=== PATIENT | female | born 1945 | race Caucasian/White ===

== ENCOUNTER → 2017-09-27 | Outpatient (CLI) | payer MEDICARE, OTHER ==
--- NOTE | 2017-09-27 13:43 | US ---
EXAMINATION TYPE: US kidneys/renal and bladder DATE OF EXAM: 09/27/2017 COMPARISON: NONE CLINICAL HISTORY: N18.3 KIDNEY DISEASE STAGE 3. CKD EXAM MEASUREMENTS: Right Kidney: 8.2 x 3.9 x 3.7 cm Left Kidney: 9.1 x 5.1 x 3.7 cm Post Void Residual Volume: 7.6 mL Right Kidney: no evidence of hydronephrosis or mass Left Kidney: no evidence of hydronephrosis or mass Bladder: appears wnl Bilateral Jets seen: no Normal Post Void Residual: yes Urinary bladder is sonolucent. Posterior wall is normal. Right ureteral jet is present. Post void res idual of 7.6 mL is normal. IMPRESSION: 1. Normal renal ultrasound
== END | disposition home or self-care (01) ==
LOC: RADUSWWP 12:42
PROVIDERS: ATTEND Family Medicine
DX: N18.3 Chronic kidney disease, stage 3 (moderate) (principal)
CPT/HCPCS: 76770

== ENCOUNTER 2017-11-26 19:50 | Observation (INO) | payer MEDICARE ==
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
[2017-11-26 20:55] LABS: Basophils % (A) 1 %; Eosinophils # (A) 0.2 k/uL (0-0.7); Eosinophils % (A) 2 %; HCT 39.7 % (34.0-46.0); HGB 12.9 gm/dL (11.4-16.0); Lymphocytes # (A) 2.2 k/uL (1.0-4.8); Lymphocytes % (A) 31 %; MCH 29.2 pg (25.0-35.0); MCHC 32.6 g/dL (31.0-37.0); MCV 89.5 fL (80.0-100.0); Mean Platelet Volume 6.9; Monocytes # (A) 0.3 k/uL (0-1.0); Monocytes % (A) 4 %; Neutrophils # (A) 4.2 k/uL (1.3-7.7); Neutrophils % (A) 60 %; Platelet Count 223 k/uL (150-450); RBC 4.43 m/uL (3.80-5.40); RDW 13.1 % (11.5-15.5); WBC 6.9 k/uL (3.8-10.6)
[2017-11-26 20:58] LABS: Appearance,Urine Clear (Clear); Bacteria,Urine Rare /hpf; Bilirubin,Urine Negative (Negative); Blood,Urine Negative (Negative); Color,Urine Light Yellow; Glucose,Urine (UA) Negative (Negative); Hyaline Casts,Urine 22 /lpf (0-2); Ketones,Urine Negative (Negative); Leukocyte Esterase,Urine Small (Negative); Nitrite,Urine Negative (Negative); Protein,Urine Negative (Negative); RBC,Urine 1 /hpf (0-5); Specific Gravity,Urine 1.006 (1.001-1.035); Squamous Epithelial Cell,Urine <1 /hpf (0-4); Urobilinogen,Urine <2.0 mg/dL (<2.0); WBC,Urine 14 /hpf (0-5)
[2017-11-26 21:04] LABS: Albumin 4.7 g/dL (3.5-5.0); Calcium 10.2 mg/dL (8.4-10.2); Total Bilirubin 0.4 mg/dL (0.2-1.3); Total Protein 7.5 g/dL (6.3-8.2)
[2017-11-26 21:11] LABS: Potassium 2.9 mmol/L (3.5-5.1)
[2017-11-26] MEDS ORDERED: POTASSIUM CHLORIDE ER 20 MEQ TAB.ER PO STA (21:41)
[2017-11-26] MEDS ORDERED: DIAZEPAM 5 MG TAB PO STA (22:09)
[2017-11-26] MEDS: POTASSIUM CHLORIDE 20 MEQ in SODIUM CHLORIDE 0.9% 100 ML IV SCH (22:16)
[2017-11-26] MEDS ORDERED: SODIUM CHLORIDE 0.9% 1,000 ML IV SCH (22:30)
[2017-11-26] MEDS ORDERED: NALOXONE 0.4 MG/ML 1 ML VIAL IV PRN (22:39)
[2017-11-26] MEDS ORDERED: traZODone HCL 100 MG TAB PO SCH (23:45)
[2017-11-26] MEDS ORDERED: DIAZEPAM 5 MG TAB PO PRN (23:47)
[2017-11-26] MEDS ORDERED: Potassium Replacement Protocol 1 EACH MISC MISCELLANE PRN (23:49)
[2017-11-27 00:18] VITALS: BMI 18.5
[2017-11-27] MEDS: QUEtiapine 100 MG TAB PO SCH ×2 (00:26→20:59)
[2017-11-27] MEDS: POTASSIUM CHLORIDE 20 MEQ in SODIUM CHLORIDE 0.9% 100 ML IV SCH (00:26)
[2017-11-27] MEDS: 0.9% NACL WITH KCL 40 MEQ/L 1,000 ML IV SCH ×2 (00:26→15:15)
--- NOTE | 2017-11-27 02:02 | HP ---
HISTORY AND PHYSICAL DATE OF SERVICE: 11/26/17 CHIEF COMPLAINT: Psychiatric evaluation. HISTORY OF PRESENT ILLNESS: This 72-year-old woman with a past medical history of multiple medical problems including DJD, history of anxiety/bipolar depression being followed by Dr. Keenan, apparently brought by police after being petitioned by son. Patient was previously evaluated for dementia, but apparently the patient was having some strange behaviors including eating Tide pods and giving you her debit cards and the patient is not eating well. The patient is losing weight and sons were concerned and patient was petitioned. The patient reports the sons are being mean. The patient also found to have severe hypokalemia. There is no history of fever, rigors, no history of headache, loss of consciousness, seizures. PAST MEDICAL HISTORY: History of DJD, history of right shoulder surgery and, anxiety depression, bipolar, history of nicotine dependence. MEDICATIONS: Prior to admission include: 1. Trazodone 200 mg q.h.s. 2. Seroquel 200 mg. 3. Valium 5 mg t.i.d. p.r.n. 4. Vitamin D 3000 daily. 5. Calcium 600 mg daily. 6. Lasix 40 mg p.o. daily. ALLERGIES: PENICILLIN. FAMILY HISTORY: No history of heart disease or strokes in the family. SOCIAL HISTORY: Previous history of smoking. No history of current smoking or alcohol intake. REVIEW OF SYSTEMS: ENT: No diminished vision or hearing. Cardiovascular no angina or palpitations. Respiratory: No cough or hemoptysis. GI no nausea or vomiting. no dysuria. Nervous system: No numbness, weakness. Allergy/Immunology:No asthma or hayfever. Musculoskeletal as mentioned earlier. Hematology: No history of anemia. Endocrine: No history of diabetes or hypothyroidism. Constitutional: As mentioned earlier. Dermatology: Negative. Rheumatology: Negative. Psychiatric: As mentioned earlier. PHYSICAL EXAMINATION: Alert and oriented times three, pulse 64, blood pressure 135/70, respiration 18, temperature 97.7, pulse ox 99% on room air. HEENT: Conjunctivae normal. Oral mucosa moist. Neck is no jugular venous distention. No carotid bruit. No lymph node enlargement. Cardiovascular system: S1, S2 muffled. Respiratory: Breath sounds diminished in the bases. A few scattered rhonchi and no crackles. ABDOMEN: Soft, nontender. No mass palpable. Legs: No edema and no swelling. NERVOUS SYSTEM: Higher functions as mentioned earlier, moves all 4 limbs, no focal deficits. Lymphatics: No lymph nodes palpable in the neck, axillae or groin. Skin no ulcer, rash or bleeding. LABS: CBC within normal limits. Sodium 140, potassium 2.9, creatinine to 1.27. ASSESSMENT: 1. Severe hypokalemia, cause undetermined. Possibly poor p.o. intake. 2. Increased creatinine, mild acute renal failure with dehydration. 3. Possible acute urinary tract infection. 4. Psychiatric symptoms, possible acute psychosis. 5. Anxiety, bipolar depression. 6. History of nicotine dependence. 7. History of degenerative joint disease. RECOMMENDATIONS AND DISCUSSION: In this 72-year-old woman who presented with multiple complex medical issues, we will monitor the patient closely. Continue the current medications, symptomatic treatment, management and i would recommend IV fluids with potassium supplementation. I would also recommend repeat labs. DVT prophylaxis and I would also recommend a psychiatric consultation and possible transfer to inpatient psych. The patient is deemed psychiatrically ill. Otherwise the prognosis guarded because of multiple complex medical issues. The cultures also will be arranged and discussed with the patient. A copy of dictation being forwarded to Dr. Keenan who is the primary physician. We will hold the Lasix for now and continue to monitor. MMODL / IJN: [id number] /
[2017-11-27 07:47] LABS: Basophils % (A) 1 %; Eosinophils # (A) 0.2 k/uL (0-0.7); Eosinophils % (A) 4 %; HCT 33.6 % (34.0-46.0); Lymphocytes # (A) 1.4 k/uL (1.0-4.8); Lymphocytes % (A) 40 %; MCH 29.3 pg (25.0-35.0); MCHC 32.8 g/dL (31.0-37.0); MCV 89.4 fL (80.0-100.0); Mean Platelet Volume 7.1; Monocytes # (A) 0.2 k/uL (0-1.0); Monocytes % (A) 6 %; Neutrophils # (A) 1.7 k/uL (1.3-7.7); Neutrophils % (A) 46 %; Platelet Count 192 k/uL (150-450); RBC 3.76 m/uL (3.80-5.40); RDW 12.8 % (11.5-15.5); WBC 3.6 k/uL (3.8-10.6)
[2017-11-27 08:11] LABS: Albumin 3.4 g/dL (3.5-5.0); Calcium 9.2 mg/dL (8.4-10.2); Magnesium 1.8 mg/dL (1.6-2.3); Potassium 4.4 mmol/L (3.5-5.1); Total Bilirubin 0.3 mg/dL (0.2-1.3); Total Protein 5.7 g/dL (6.3-8.2)
[2017-11-27] MEDS ORDERED: PNEUMOCOCCAL VACC-PNEUMOVAX 23 25 MCG/0.5 ML VIAL IM ONE (08:30)
[2017-11-27] MEDS: CALCIUM CARBONATE 500 MG CHEWABLE PO SCH (09:24)
[2017-11-27] MEDS: CHOLECALCIFEROL 1,000 UNIT TAB PO SCH (09:25)
[2017-11-27] MEDS: cefTRIAXone IN SWFI 1,000 MG/10 ML SYRINGE IVP SCH (09:25)
[2017-11-27] MEDS: HEPARIN SODIUM,PORCINE 5,000 UNIT/ML 1 ML VIAL SQ SCH ×2 (09:25→20:59)
[2017-11-27] MEDS: MULTIVITAMINS, THERA 1 EACH TAB PO SCH (11:40)
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
[2017-11-27] MEDS: DIAZEPAM 5 MG TAB PO SCH (20:59)
[2017-11-28] MEDS: 0.9% NACL WITH KCL 40 MEQ/L 1,000 ML IV SCH ×2 (06:29→16:36)
[2017-11-28] MEDS: cefTRIAXone IN SWFI 1,000 MG/10 ML SYRINGE IVP SCH (08:57)
[2017-11-28] MEDS: CALCIUM CARBONATE 500 MG CHEWABLE PO SCH (08:57)
[2017-11-28] MEDS: DIAZEPAM 5 MG TAB PO SCH ×2 (08:58→20:18)
[2017-11-28] MEDS: HEPARIN SODIUM,PORCINE 5,000 UNIT/ML 1 ML VIAL SQ SCH ×2 (08:58→20:19)
[2017-11-28] MEDS: CHOLECALCIFEROL 1,000 UNIT TAB PO SCH (08:58)
[2017-11-28 09:42] LABS: Basophils % (A) 0 %; Eosinophils # (A) 0.2 k/uL (0-0.7); Eosinophils % (A) 5 %; HGB 11.4 gm/dL (11.4-16.0); Hypochromasia Slight; Lymphocytes # (A) 1.4 k/uL (1.0-4.8); Lymphocytes % (A) 42 %; MCH 29.1 pg (25.0-35.0); MCHC 30.9 g/dL (31.0-37.0); MCV 94.3 fL (80.0-100.0); Mean Platelet Volume 7.3; Monocytes # (A) 0.2 k/uL (0-1.0); Monocytes % (A) 6 %; Neutrophils # (A) 1.5 k/uL (1.3-7.7); Neutrophils % (A) 45 %; Platelet Count 180 k/uL (150-450); RBC 3.93 m/uL (3.80-5.40); RDW 12.9 % (11.5-15.5); WBC 3.4 k/uL (3.8-10.6)
--- NOTE | 2017-11-28 10:13 | P.PN ---
Subjective Progress Note Date: 11/27/17 Progress note being dictated for Dr. Mcnair. Interval history: This a 72-year-old female admitted with severe hypokalemia of unclear etiology, suspect poor oral intake, acute renal failure with dehydration , possible acute UTI, psychiatric symptoms, possible acute psychosis and multiple other medical issues. Maintained on IV fluids, potassium replacement supplements, holding lasix. Potassium normalized, renal function improving. Patient has been petitioned by son. Psychiatry consult in place with recommendations pending. Currently alert and oriented 3. Afebrile, urine and blood cultures pending. Objective - Vital Signs Vital signs: Vital Signs Temp 98.2 F 11/27/17 15:00 Pulse 68 11/27/17 15:00 Resp 18 11/27/17 15:00 BP 114/59 11/27/17 15:00 Pulse Ox 96 11/27/17 15:00 Intake & Output 11/27/17 11/27/17 11/28/17 06:59 18:59 06:59 Weight 43 kg 43 kg Other: Voiding Method Toilet Toilet # Voids 1 2 - Exam PHYSICAL EXAM: VITAL SIGNS: As above GENERAL: Sitting up in bed, no acute distress HEENT: Conjunctivae normal. eyes normal. Oral mucosa moist NECK: No JVD. No thyroid enlargement. No LNs CARDIOVASCULAR: S1, S2 muffled. No murmur RESPIRATION: Breath sounds diminished in the bases. Occasional scattered rhonchi, no crackles, no wheezing ABDOMEN: Soft, nontender . No guarding. no masses palpable. Bowel sounds heard. LEGS: No edema. no swelling PSYCHIATRY: Alert and oriented -3, mood and affect normal, cooperative. NERVOUS SYSTEM: Cranial N 2-12 grossly normal. Moves all 4 limbs. Diffuse weakness No focal deficits. Skin: no ulcer no rash Joints: No active swelling. No inflammation. Lymphatic system. No LN neck axilla or groin. - Labs CBC & Chem 7: 11/28/17 08:45 11/27/17 07:09 Labs: Abnormal Lab Results - Last 24 Hours (Table) 11/26/17 11/26/17 11/27/17 Range/Units 20:43 20:43 07:09 WBC 3.6 L (3.8-10.6) k/uL RBC 3.76 L (3.80-5.40) m/uL Hgb 11.0 L (11.4-16.0) gm/dL Hct 33.6 L (34.0-46.0) % Potassium 2.9 L* (3.5-5.1) mmol/L Chloride 93 L (98-107) mmol/L Carbon Dioxide 33 H (22-30) mmol/L BUN 19 H (7-17) mg/dL Creatinine 1.27 H (0.52-1.04) mg/dL Glucose 144 H (74-99) mg/dL Total Protein (6.3-8.2) g/dL Albumin (3.5-5.0) g/dL Ur Leukocyte Esterase Small H (Negative) Urine WBC 14 H (0-5) /hpf Urine Bacteria Rare H (None) /hpf Hyaline Casts 22 H (0-2) /lpf 11/27/17 Range/Units 07:09 WBC (3.8-10.6) k/uL RBC (3.80-5.40) m/uL Hgb (11.4-16.0) gm/dL Hct (34.0-46.0) % Potassium (3.5-5.1) mmol/L Chloride 108 H (98-107) mmol/L Carbon Dioxide (22-30) mmol/L BUN (7-17) mg/dL Creatinine 1.13 H (0.52-1.04) mg/dL Glucose (74-99) mg/dL Total Protein 5.7 L (6.3-8.2) g/dL Albumin 3.4 L (3.5-5.0) g/dL Ur Leukocyte Esterase (Negative) Urine WBC (0-5) /hpf Urine Bacteria (None) /hpf Hyaline Casts (0-2) /lpf Microbiology - Last 24 Hours (Table) 11/27/17 07:30 Urine Culture - Preliminary Urine,Clean Catch Assessment and Plan Assessment: 1. Severe hypokalemia, etiology unclear, suspect poor oral intake, resolved 2. Acute renal failure with dehydration, improving 3. Possible acute UTI, cultures pending 4. Psychiatric symptoms, possible acute psychosis 5. Anxiety, bipolar depression 6. History of nicotine dependence 7. Degenerative joint disease Plan: Continue on current medication regime ,monitoring and symptomatic treatment. Maintain IV fluid hydration, continue holding Lasix. Close monitoring of electrolytes and renal function with repeat labs ordered for a.m. Psych consult in place, recommendations pending. The impression and plan of care has been dictated as directed. : I performed a history and examination of this patient, discussed the same with the dictator. I agree with the dictator's note ,documented as a scribe. Any additional findings or plans will be noted.
[2017-11-28 11:20] LABS: Calcium 9.6 mg/dL (8.4-10.2); Potassium 4.2 mmol/L (3.5-5.1)
[2017-11-28] MEDS: MULTIVITAMINS, THERA 1 EACH TAB PO SCH (12:35)
--- NOTE | 2017-11-28 19:28 | P.PN ---
Subjective Progress Note Date: 11/28/17 Progress note being dictated for Dr. Mcnair. Interval history: This a 72-year-old female admitted with severe hypokalemia of unclear etiology, suspect poor oral intake, acute renal failure with dehydration , possible acute UTI, psychiatric symptoms, possible acute psychosis and multiple other medical issues. Maintained on IV fluids, potassium replacement supplements, holding lasix. Potassium normalized, renal function improving. Patient has been petitioned by son. Psychiatry consult in place with recommendations pending. Currently alert and oriented 3. Afebrile, urine and blood cultures pending. 11/29/16 No Overnight events. Afebrile, cultures pending. Patient continues to complain of home environment, cries easily. Evaluated by psychiatry with recommendations noted. States she was diagnosed with early dementia but had not followed up with anyone since. Denies chest pain, palpitations or shortness of breath. Objective - Vital Signs Vital signs: Vital Signs Temp 97.1 F L 11/28/17 15:00 Pulse 67 11/28/17 15:00 Resp 16 11/28/17 15:00 BP 115/69 11/28/17 15:00 Pulse Ox 100 11/28/17 15:00 Intake & Output 11/28/17 11/28/17 11/29/17 06:59 18:59 06:59 Intake Total 480 Balance 480 Intake: Oral 480 Other: Voiding Method Toilet Toilet # Voids 1 3 - Exam PHYSICAL EXAM: VITAL SIGNS: As above GENERAL: Sitting up in bed, no acute distress HEENT: Conjunctivae normal. eyes normal. Oral mucosa moist NECK: No JVD. No thyroid enlargement. No LNs CARDIOVASCULAR: S1, S2 muffled. No murmur RESPIRATION: Breath sounds diminished in the bases. Occasional scattered rhonchi, no crackles, no wheezing ABDOMEN: Soft, nontender . No guarding. no masses palpable. Bowel sounds heard. LEGS: No edema. no swelling PSYCHIATRY: Alert and oriented -3, fluctuating moods, cooperative NERVOUS SYSTEM: Cranial N 2-12 grossly normal. Moves all 4 limbs. Diffuse weakness No focal deficits. Skin: no ulcer no rash Joints: No active swelling. No inflammation. Lymphatic system. No LN neck axilla or groin. - Labs CBC & Chem 7: 11/28/17 08:45 11/28/17 08:45 Labs: Abnormal Lab Results - Last 24 Hours (Table) 11/28/17 11/28/17 Range/Units 08:45 08:45 WBC 3.4 L (3.8-10.6) k/uL MCHC 30.9 L (31.0-37.0) g/dL Creatinine 1.12 H (0.52-1.04) mg/dL Glucose 138 H (74-99) mg/dL Microbiology - Last 24 Hours (Table) 11/27/17 03:40 Blood Culture - Preliminary Blood No Growth after 24 hours Assessment and Plan Assessment: 1. Severe hypokalemia, etiology unclear, suspect poor oral intake, resolved 2. Acute renal failure with dehydration, improving 3. Possible acute UTI, cultures pending 4. Psychiatric symptoms, possible acute psychosis 5. Anxiety, bipolar depression 6. History of nicotine dependence 7. Degenerative joint disease Plan: Continue on current medication regime ,monitoring and symptomatic treatment. Renal function continues to improve, good diet intake, IV fluids PIVL'd, Lasix remains on hold. Close monitoring of electrolytes and renal function with repeat labs ordered for a.m. Discharge planning in progress- bulk intake worker assisting in safe discharge plan, discussing potential public guardian to son's, potential placement. Increase ambulation with assistance, as tolerated. The impression and plan of care has been dictated as directed. : I performed a history and examination of this patient, discussed the same with the dictator. I agree with the dictator's note ,documented as a scribe. Any additional findings or plans will be noted.
[2017-11-28] MEDS: QUEtiapine 100 MG TAB PO SCH (20:18)
[2017-11-29] MEDS: HEPARIN SODIUM,PORCINE 5,000 UNIT/ML 1 ML VIAL SQ SCH ×2 (07:54→21:07)
[2017-11-29] MEDS: cefTRIAXone IN SWFI 1,000 MG/10 ML SYRINGE IVP SCH (07:54)
[2017-11-29] MEDS: DIAZEPAM 5 MG TAB PO SCH ×2 (07:54→21:07)
[2017-11-29] MEDS: CHOLECALCIFEROL 1,000 UNIT TAB PO SCH (07:54)
[2017-11-29] MEDS: CALCIUM CARBONATE 500 MG CHEWABLE PO SCH (07:54)
[2017-11-29 09:31] LABS: Basophils % (A) 1 %; Eosinophils # (A) 0.2 k/uL (0-0.7); Eosinophils % (A) 4 %; HCT 37.1 % (34.0-46.0); HGB 12.1 gm/dL (11.4-16.0); Lymphocytes # (A) 1.2 k/uL (1.0-4.8); Lymphocytes % (A) 35 %; MCH 29.4 pg (25.0-35.0); MCHC 32.7 g/dL (31.0-37.0); MCV 89.9 fL (80.0-100.0); Mean Platelet Volume 6.9; Monocytes # (A) 0.2 k/uL (0-1.0); Monocytes % (A) 5 %; Neutrophils # (A) 1.7 k/uL (1.3-7.7); Neutrophils % (A) 51 %; Platelet Count 200 k/uL (150-450); RBC 4.13 m/uL (3.80-5.40); RDW 12.6 % (11.5-15.5); WBC 3.3 k/uL (3.8-10.6)
[2017-11-29 09:40] LABS: Calcium 9.8 mg/dL (8.4-10.2); Potassium 4.1 mmol/L (3.5-5.1)
[2017-11-29] MEDS: MULTIVITAMINS, THERA 1 EACH TAB PO SCH (12:50)
[2017-11-29] MEDS: QUEtiapine 100 MG TAB PO SCH (21:07)
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
[2017-11-30 07:27] VITALS: BP 121/74; PULSE 64; RESP 16; TEMP 96.2
--- NOTE | 2017-11-30 08:25 | CT ---
EXAMINATION TYPE: CT brain wo con DATE OF EXAM: 11/30/2017 COMPARISON: NONE HISTORY: Dementia CT DLP: 999.8 mGycm Automated exposure control for dose reduction was used. FINDINGS: Moderate generalized degenerative change with a slightly greater frontal lobe component. No midline s hift or mass effect. No acute hemorrhage. Periventricular low attenuation is nonspecific. Calvarium i ntact. IMPRESSION: MODERATE DEGENERATIVE CHANGE WITH A GREATER FRONTAL LOBE COMPONENT. PERIVENTRICULAR LOW ATTENUATION I S NONSPECIFIC BUT MOST TYPICAL REMOTE MICROVASCULAR ISCHEMIA. CORRELATE CLINICALLY.
[2017-11-30] MEDS: CALCIUM CARBONATE 500 MG CHEWABLE PO SCH (08:34)
[2017-11-30] MEDS: DIAZEPAM 5 MG TAB PO SCH (08:34)
[2017-11-30] MEDS: CEPHALEXIN 250 MG CAP PO SCH ×2 (08:34→15:32)
[2017-11-30] MEDS: CHOLECALCIFEROL 1,000 UNIT TAB PO SCH (08:34)
[2017-11-30] MEDS: HEPARIN SODIUM,PORCINE 5,000 UNIT/ML 1 ML VIAL SQ SCH (08:34)
[2017-11-30 08:55] LABS: Basophils % (A) 1 %; Eosinophils # (A) 0.2 k/uL (0-0.7); Eosinophils % (A) 4 %; HCT 39.5 % (34.0-46.0); HGB 12.9 gm/dL (11.4-16.0); Lymphocytes # (A) 1.6 k/uL (1.0-4.8); Lymphocytes % (A) 38 %; MCH 29.5 pg (25.0-35.0); MCHC 32.6 g/dL (31.0-37.0); MCV 90.5 fL (80.0-100.0); Mean Platelet Volume 6.8; Monocytes # (A) 0.2 k/uL (0-1.0); Monocytes % (A) 6 %; Neutrophils # (A) 2.1 k/uL (1.3-7.7); Neutrophils % (A) 48 %; Platelet Count 221 k/uL (150-450); RBC 4.36 m/uL (3.80-5.40); RDW 12.7 % (11.5-15.5); WBC 4.3 k/uL (3.8-10.6)
[2017-11-30 09:24] LABS: Calcium 10.2 mg/dL (8.4-10.2); Potassium 3.9 mmol/L (3.5-5.1)
[2017-11-30 10:48] LABS: T4, Free (Free Thyroxine) 0.81 ng/dL (0.78-2.19)
[2017-11-30] MEDS: MULTIVITAMINS, THERA 1 EACH TAB PO SCH (12:39)
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
== END 2017-11-30 16:48 | disposition home health service (06) ==
LOC: EC 19:50 → 4MS4W 22:45
PROVIDERS: ADMIT Hospitalist; ATTEND Hospitalist
DX: E87.6 Hypokalemia (principal); T50.2X5A Adverse effect of carbonic-anhydrase inhibitors, benzothiadiazides and other diuretics, initial encounter; N17.9 Acute kidney failure, unspecified; E86.0 Dehydration; F41.9 Anxiety disorder, unspecified; F31.9 Bipolar disorder, unspecified; Z87.891 Personal history of nicotine dependence; M19.90 Unspecified osteoarthritis, unspecified site; F03.90 Unspecified dementia, unspecified severity, without behavioral disturbance, psychotic disturbance, mood disturbance, and anxiety; Z79.899 Other long term (current) drug therapy; Z88.0 Allergy status to penicillin; Z23 Encounter for immunization
CPT/HCPCS: 36415; 70450; 80048; 80053; 81001; 81025; 82075; 82607; 83735; 84132; 84439; 84443; 85025; 87040; 87077; 87086; 87186; 90732; 93005; 96365; 96366; 96372; 96375; 96376; 99285

== ENCOUNTER 2018-04-26 16:32 | Emergency (ER) | payer MEDICARE ==
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
[2018-04-26 19:33] LABS: Phencyclidine Screen,Urine Not Detected (NotDetected); Urn Cannabinoid Scrn Not Detected (NotDetected)
[2018-04-26 19:34] LABS: Amphetamine Screen,Urine Not Detected (NotDetected); Barbiturate Screen,Urine Not Detected (NotDetected); Benzodiazepines Screen,Urine Detected (NotDetected); Cocaine Screen,Urine Not Detected (NotDetected); Methadone Screen, Urine Not Detected (NotDetected); Opiate Screen,Urine Not Detected (NotDetected); Oxycodone Screen, Urine Not Detected (NotDetected); Tricyclic Antidepressant,Urine Detected (NotDetected)
[2018-04-26 21:26] VITALS: BP 147/74; PULSE 69; RESP 18; TEMP 97.9
== END 2018-04-26 21:30 | disposition home or self-care (01) ==
LOC: EC 16:32
DX: Z04.6 Encounter for general psychiatric examination, requested by authority (principal); F31.9 Bipolar disorder, unspecified; Z87.891 Personal history of nicotine dependence; Z79.899 Other long term (current) drug therapy; Z88.0 Allergy status to penicillin
CPT/HCPCS: 80306; 82075; 99284

== ENCOUNTER 2018-05-18 17:13 | Emergency (ER) | payer MEDICARE ==
[2018-05-18 17:24] VITALS: RESP 18
[2018-05-18] MEDS ORDERED: SODIUM CHLORIDE 0.9% 1,000 ML IV STA (17:35)
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
[2018-05-18 18:15] LABS: Basophils % (A) 0 %; Eosinophils % (A) 0 %; HCT 41.7 % (34.0-46.0); HGB 13.5 gm/dL (11.4-16.0); Lymphocytes # (A) 0.8 k/uL (1.0-4.8); Lymphocytes % (A) 7 %; MCHC 32.3 g/dL (31.0-37.0); MCV 89.6 fL (80.0-100.0); Mean Platelet Volume 6.8; Monocytes # (A) 0.4 k/uL (0-1.0); Monocytes % (A) 4 %; Neutrophils # (A) 10.4 k/uL (1.3-7.7); Neutrophils % (A) 88 %; Platelet Count 232 k/uL (150-450); RBC 4.66 m/uL (3.80-5.40); RDW 13.3 % (11.5-15.5); WBC 11.8 k/uL (3.8-10.6)
[2018-05-18 18:30] LABS: Albumin 4.6 g/dL (3.5-5.0); Calcium 10.1 mg/dL (8.4-10.2); Potassium 3.5 mmol/L (3.5-5.1); Total Bilirubin 0.5 mg/dL (0.2-1.3); Total Protein 7.6 g/dL (6.3-8.2)
[2018-05-18 18:31] LABS: Partial Thromboplastin Time 19.7 sec (22.0-30.0)
[2018-05-18 18:37] LABS: Creatine Kinase 51 U/L (30-135)
--- NOTE | 2018-05-18 18:44 | XR ---
EXAMINATION TYPE: XR chest 2V DATE OF EXAM: 05/18/2018 COMPARISON: None HISTORY: Syncope TECHNIQUE: Frontal and lateral views of the chest are obtained. FINDINGS: There is no focal air space opacity, pleural effusion, or pneumothorax seen. The cardiac silhouette size is within normal limits. There are overlying cardiac leads. Patient is rotated. The osseous structures are intact. IMPRESSION: No acute cardiopulmonary process.
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
[2018-05-18 18:48] LABS: Creatine Kinase MB 0.9 ng/mL (0.0-2.4); Troponin I <0.012 ng/mL (0.000-0.034)
--- NOTE | 2018-05-18 18:54 | CT ---
EXAMINATION TYPE: CT brain cspine wo con DATE OF EXAM: 05/18/2018 COMPARISON: CT brain 11/30/2017 HISTORY: Syncope and fall. CT DLP: 1016.8 mGycm Automated exposure control for dose reduction was used. TECHNIQUE: CT scan of the head and cervical spine are performed without contrast. FINDINGS: There is no acute intracranial hemorrhage, mass effect, or midline shift identified. The ventricles and sulci are within normal limits in size. Cephalhematoma present at the posterior mitchell etal location on the right. Periventricular white matter shows patchy low attenuation. The globes are intact and the visualized sinuses are clear. Cervical spine is visualized in its entirety from C1 through upper thoracic levels and demonstrates s atisfactory alignment without evidence of acute fracture or dislocation. Prevertebral soft tissue ap pears within normal limits. The C1-C2 articulation is unremarkable. There is multilevel spondylosis, loss of disc height C4-5, C5-6 and C6-7 compatible with degenerative disc disease. IMPRESSION: 1. There is no acute fracture or dislocation evident in the cervical spine. 2. No acute intracranial hemorrhage, mass effect, or midline shift is seen. Brain shows a stable appe arance, cephalohematoma is present
[2018-05-18 19:32] LABS: Appearance,Urine Clear (Clear); Bilirubin,Urine Negative (Negative); Blood,Urine Negative (Negative); Color,Urine Light Yellow; Glucose,Urine (UA) Negative (Negative); Ketones,Urine Negative (Negative); Leukocyte Esterase,Urine Negative (Negative); Nitrite,Urine Negative (Negative); PH, Urine 6.5 (5.0-8.0); Protein,Urine Negative (Negative); Specific Gravity,Urine 1.006 (1.001-1.035); Urobilinogen,Urine <2.0 mg/dL (<2.0)
[2018-05-18 21:27] VITALS: BP 143/67; PULSE 63; TEMP 98
== END 2018-05-18 21:25 | disposition home or self-care (01) ==
LOC: EC 17:13
DX: S00.03XA Contusion of scalp, initial encounter (principal); S50.02XA Contusion of left elbow, initial encounter; S50.01XA Contusion of right elbow, initial encounter; F31.9 Bipolar disorder, unspecified; F41.9 Anxiety disorder, unspecified; Z87.891 Personal history of nicotine dependence; Z79.899 Other long term (current) drug therapy; Z88.0 Allergy status to penicillin; Z88.1 Allergy status to other antibiotic agents; W18.00XA Striking against unspecified object with subsequent fall, initial encounter
CPT/HCPCS: 36415; 70450; 71046; 72125; 80053; 81003; 82550; 82553; 84484; 85025; 85610; 85730; 93005; 96360; 99285

== ENCOUNTER 2018-08-15 17:40 | Emergency (ER) | payer MEDICARE ==
[2018-08-15] MEDS ORDERED: SODIUM CHLORIDE 0.9% 500 ML 500 ML IV ONE (17:44)
[2018-08-15 17:54] VITALS: RESP 18
[2018-08-15 18:37] LABS: Glucose,Whole Blood 118 mg/dL (75-99)
[2018-08-15 18:53] LABS: Basophils % (A) 0 %; Eosinophils # (A) 0.2 k/uL (0-0.7); Eosinophils % (A) 2 %; HCT 35.6 % (34.0-46.0); HGB 12.2 gm/dL (11.4-16.0); Lymphocytes # (A) 1.3 k/uL (1.0-4.8); Lymphocytes % (A) 12 %; MCH 30.5 pg (25.0-35.0); MCHC 34.4 g/dL (31.0-37.0); MCV 88.7 fL (80.0-100.0); Mean Platelet Volume 6.7; Monocytes # (A) 0.5 k/uL (0-1.0); Monocytes % (A) 5 %; Neutrophils # (A) 8.7 k/uL (1.3-7.7); Neutrophils % (A) 80 %; Platelet Count 244 k/uL (150-450); RBC 4.02 m/uL (3.80-5.40); RDW 13.8 % (11.5-15.5); WBC 10.9 k/uL (3.8-10.6)
[2018-08-15 19:02] LABS: Albumin 4.2 g/dL (3.5-5.0); Calcium 9.2 mg/dL (8.4-10.2); Magnesium 1.9 mg/dL (1.6-2.3); Total Bilirubin 0.4 mg/dL (0.2-1.3)
[2018-08-15 19:05] LABS: Creatine Kinase 90 U/L (30-135)
[2018-08-15 19:06] LABS: Potassium 2.5 mmol/L (3.5-5.1)
[2018-08-15 19:15] LABS: D-Dimer 0.4 mg/L FEU (<0.60); Prothrombin Time 9.8 sec (9.0-12.0)
[2018-08-15] MEDS ORDERED: POTASSIUM CHLORIDE 2 MEQ/ML 20 ML VIAL IV STA (19:16)
[2018-08-15] MEDS ORDERED: POTASSIUM CHLORIDE ER 20 MEQ TAB.ER PO STA (19:16)
[2018-08-15 19:18] LABS: Troponin I <0.012 ng/mL (0.000-0.034)
[2018-08-15 19:19] LABS: Partial Thromboplastin Time 20.4 sec (22.0-30.0)
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
[2018-08-15] MEDS ORDERED: POTASSIUM CHLORIDE 20 MEQ in WATER FOR INJECTION 1 100ML.BAG IVPB SCH (20:00)
[2018-08-15 20:02] LABS: Appearance,Urine Clear (Clear); Bilirubin,Urine Negative (Negative); Blood,Urine Negative (Negative); Color,Urine Light Yellow; Glucose,Urine (UA) Negative (Negative); Ketones,Urine Negative (Negative); Leukocyte Esterase,Urine Negative (Negative); Nitrite,Urine Negative (Negative); Protein,Urine Negative (Negative); Specific Gravity,Urine 1.006 (1.001-1.035); Urobilinogen,Urine <2.0 mg/dL (<2.0)
[2018-08-15] MEDS ORDERED: levETIRAcetam 500 MG TAB PO STA (20:22)
--- NOTE | 2018-08-15 20:23 | CT ---
EXAMINATION TYPE: CT brain wo con DATE OF EXAM: 08/15/2018 COMPARISON: 05/18/2018 HISTORY: Syncope with vomiting. CT DLP: 1055.4 mGycm Automated exposure control for dose reduction was used. FINDINGS: There is significant symmetric widening of the subdural space over both frontal lobes and parietal lo bes. There is mixed attenuation but mostly low density fluid. Subdural hygromas measure up to 1.6 cm in thickness. There is no midline shift. Ventricles have normal size. The calvarium is intact. IMPRESSION: COMPARED TO LAST EXAM THERE IS DEVELOPMENT OF LARGE BILATERAL ACUTE AND CHRONIC SUBDURAL HYGROMAS AND HEMATOMAS. THERE IS VERY LITTLE ACUTE HEMORRHAGE. THIS EXAM WAS DISCUSSED WITH ER PHYSICIAN AT 8:20 PM.
--- NOTE | 2018-08-15 20:28 | XR ---
EXAMINATION TYPE: XR chest 2V DATE OF EXAM: 08/15/2018 COMPARISON: 05/18/2018 HISTORY: Syncope TECHNIQUE: Frontal and lateral views of the chest are obtained. FINDINGS: Heart and mediastinum are normal. Lungs are clear. Diaphragm is normal. Bony thorax appear s normal. Pulmonary vascularity is normal. There are chest leads. IMPRESSION: Normal chest. No change.
[2018-08-15 21:28] VITALS: BP 122/72; PULSE 68; TEMP 98.6
== END 2018-08-15 21:37 | disposition other institution (70) ==
LOC: EC 17:40
DX: I62.01 Nontraumatic acute subdural hemorrhage (principal); I62.03 Nontraumatic chronic subdural hemorrhage; E87.6 Hypokalemia; G96.0 Cerebrospinal fluid leak; F31.9 Bipolar disorder, unspecified; F41.9 Anxiety disorder, unspecified; Z87.891 Personal history of nicotine dependence; Z98.890 Other specified postprocedural states; Z79.899 Other long term (current) drug therapy; Z88.0 Allergy status to penicillin; Z88.1 Allergy status to other antibiotic agents
CPT/HCPCS: 36415; 93005; 85379; 80053; 82550; 82553; 83735; 84484; 85025; 85610; 85730; 81003; 71046; 70450; 99285; 96365; 96376; 96361; J3480 ×2

== ENCOUNTER 2018-09-22 17:31 | Inpatient (IN) | payer MEDICARE, OTHER ==
--- NOTE | 2018-09-22 17:52 | ED ---
Fall HPI - General Stated Complaint: Syncope, Fall Time Seen by Provider: 09/22/18 17:34 Source: patient, EMS, RN notes reviewed, old records reviewed Mode of arrival: EMS - History of Present Illness Initial Comments: This is a 73-year-old female the ER for evaluation of multiple falls history of falls. Patient's of his poor historian history obtained from patient's chart as well as time is at bedside. Increasing falls lately does have recent fall with subdural hematoma. Patient himself is currently denying any significant complaints or pain MD Complaint: fall -: unknown Fall From: standing When Fall Occurred: unsure Fall Witnessed: no Place Fall Occurred: home Loss of Consciousness: none Prolonged Down Time?: yes Symptoms Prior to Fall: lightheadedness, dizziness Location: head Severity: mild Severity scale (1-10): 1 Quality: other Context: tripped/slipped, other (Syncope) Associated Symptoms: denies - Related Data Home Medications Medication Instructions Recorded Confirmed Escitalopram [Lexapro] 30 mg PO DAILY 04/26/18 09/22/18 Levothyroxine Sodium [Synthroid] 88 mcg PO DAILY 04/26/18 09/22/18 QUEtiapine FUMARATE [SEROquel] 300 mg PO HS 04/26/18 09/22/18 busPIRone HCl [Buspar] 10 mg PO TID 04/26/18 09/22/18 QUEtiapine FUMARATE 300 mg PO QAM 09/22/18 09/22/18 Allergies Allergy/AdvReac Type Severity Reaction Status Date / Time amoxicillin AdvReac Nausea & Verified 09/22/18 19:26 Vomiting erythromycin base AdvReac Unknown Verified 09/22/18 19:26 Penicillins AdvReac Nausea & Verified 09/22/18 19:26 Vomiting Review of Systems ROS Statement: Those systems with pertinent positive or pertinent negative responses have been documented in the HPI. ROS Other: All systems not noted in ROS Statement are negative. Past Medical History Past Medical History: No Reported History History of Any Multi-Drug Resistant Organisms: None Reported Past Surgical History: Orthopedic Surgery Additional Past Surgical History / Comment(s): Right shoulder surgery, left foot bone spur Past Psychological History: Anxiety, Bipolar, Depression Smoking Status: Former smoker Past Alcohol Use History: None Reported Past Drug Use History: None Reported - Past Family History Family Family Medical History: No Reported History Course Vital Signs 09/22/18 09/22/18 09/22/18 17:51 20:05 20:32 Temperature 97.9 F Pulse Rate 89 81 Pulse Rate [ Pulse Oximetery ] Respiratory 18 16 16 Rate Blood Pressure 142/93 103/74 Blood Pressure [Right Arm] O2 Sat by Pulse 96 Oximetry 09/22/18 09/22/18 09/22/18 20:41 22:30 23:55 Temperature 98.2 F 98.1 F Pulse Rate 75 Pulse Rate [ 70 Pulse Oximetery ] Respiratory 16 16 17 Rate Blood Pressure 128/83 Blood Pressure 120/70 [Right Arm] O2 Sat by Pulse 99 98 Oximetry - Reevaluation(s) Reevaluation #1: Medical record is reviewed His pain is currently improved Symptoms have no improvement here in the ER Reevaluation #2: spoke with Dr. Armenta regarding admission and he is agreeable for admission Medical Decision Making - Medical Decision Making 73 female the ER for multiple falls, pain pain all over left hip pain. Patient does have hypokalemia, will admit for potassium replacement - Lab Data Result diagrams: 09/22/18 17:50 09/24/18 07:40 Lab Results 09/22/18 09/22/18 09/22/18 Range/Units 17:50 17:50 17:50 WBC 6.5 (3.8-10.6) k/uL RBC 4.39 (3.80-5.40) m/uL Hgb 12.8 (11.4-16.0) gm/dL Hct 38.9 (34.0-46.0) % MCV 88.7 (80.0-100.0) fL MCH 29.2 (25.0-35.0) pg MCHC 33.0 (31.0-37.0) g/dL RDW 13.9 (11.5-15.5) % Plt Count 199 (150-450) k/uL Neutrophils % 67 % Lymphocytes % 24 % Monocytes % 6 % Eosinophils % 1 % Basophils % 0 % Neutrophils # 4.4 (1.3-7.7) k/uL Lymphocytes # 1.6 (1.0-4.8) k/uL Monocytes # 0.4 (0-1.0) k/uL Eosinophils # 0.1 (0-0.7) k/uL Basophils # 0.0 (0-0.2) k/uL PT (9.0-12.0) sec INR (<1.2) APTT (22.0-30.0) sec Sodium 140 (137-145) mmol/L Potassium 2.5 L* (3.5-5.1) mmol/L Chloride 99 (98-107) mmol/L Carbon Dioxide 27 (22-30) mmol/L Anion Gap 14 mmol/L BUN 34 H (7-17) mg/dL Creatinine 1.57 H (0.52-1.04) mg/dL Est GFR (CKD-EPI)AfAm 37 (>60 ml/min/1.73 sqM) Est GFR (CKD-EPI)NonAf 32 (>60 ml/min/1.73 sqM) Glucose 159 H (74-99) mg/dL Calcium 9.4 (8.4-10.2) mg/dL Phosphorus 4.5 (2.5-4.5) mg/dL Magnesium 1.7 (1.6-2.3) mg/dL Total Bilirubin 0.4 (0.2-1.3) mg/dL AST 24 (14-36) U/L ALT 26 (9-52) U/L Alkaline Phosphatase 140 H (38-126) U/L Total Creatine Kinase 40 (30-135) U/L CK-MB (CK-2) 0.5 (0.0-2.4) ng/mL CK-MB (CK-2) Rel Index 1.3 Troponin I <0.012 (0.000-0.034) ng/mL Total Protein 7.7 (6.3-8.2) g/dL Albumin 4.4 (3.5-5.0) g/dL Urine Color Urine Appearance (Clear) Urine pH (5.0-8.0) Ur Specific [place] (1.001-1.035) Urine Protein (Negative) Urine Glucose (UA) (Negative) Urine Ketones (Negative) Urine Blood (Negative) Urine Nitrite (Negative) Urine Bilirubin (Negative) Urine Urobilinogen (<2.0) mg/dL Ur Leukocyte Esterase (Negative) 09/22/18 09/22/18 Range/Units 17:50 17:50 WBC (3.8-10.6) k/uL RBC (3.80-5.40) m/uL Hgb (11.4-16.0) gm/dL Hct (34.0-46.0) % MCV (80.0-100.0) fL MCH (25.0-35.0) pg MCHC (31.0-37.0) g/dL RDW (11.5-15.5) % Plt Count (150-450) k/uL Neutrophils % % Lymphocytes % % Monocytes % % Eosinophils % % Basophils % % Neutrophils # (1.3-7.7) k/uL Lymphocytes # (1.0-4.8) k/uL Monocytes # (0-1.0) k/uL Eosinophils # (0-0.7) k/uL Basophils # (0-0.2) k/uL PT 10.0 (9.0-12.0) sec INR 0.9 (<1.2) APTT 21.3 L (22.0-30.0) sec Sodium (137-145) mmol/L Potassium (3.5-5.1) mmol/L Chloride (98-107) mmol/L Carbon Dioxide (22-30) mmol/L Anion Gap mmol/L BUN (7-17) mg/dL Creatinine (0.52-1.04) mg/dL Est GFR (CKD-EPI)AfAm (>60 ml/min/1.73 sqM) Est GFR (CKD-EPI)NonAf (>60 ml/min/1.73 sqM) Glucose (74-99) mg/dL Calcium (8.4-10.2) mg/dL Phosphorus (2.5-4.5) mg/dL Magnesium (1.6-2.3) mg/dL Total Bilirubin (0.2-1.3) mg/dL AST (14-36) U/L ALT (9-52) U/L Alkaline Phosphatase (38-126) U/L Total Creatine Kinase (30-135) U/L CK-MB (CK-2) (0.0-2.4) ng/mL CK-MB (CK-2) Rel Index Troponin I (0.000-0.034) ng/mL Total Protein (6.3-8.2) g/dL Albumin (3.5-5.0) g/dL Urine Color Light Yellow Urine Appearance Clear (Clear) Urine pH 6.5 (5.0-8.0) Ur Specific [place] 1.008 (1.001-1.035) Urine Protein Negative (Negative) Urine Glucose (UA) Negative (Negative) Urine Ketones Negative (Negative) Urine Blood Negative (Negative) Urine Nitrite Negative (Negative) Urine Bilirubin Negative (Negative) Urine Urobilinogen <2.0 (<2.0) mg/dL Ur Leukocyte Esterase Negative (Negative) - Radiology Data Radiology results: report reviewed (CT brain C-spine negative for acute disease , x-ray chest and pelvis negative for traumatic injury,), image reviewed Disposition Clinical Impression: Fall, Hypokalemia, Dementia, Weakness Disposition: ADMITTED IP TO THIS HOSP Is patient prescribed a controlled substance at d/c from ED?: No
[2018-09-22] MEDS ORDERED: SODIUM CHLORIDE 0.9% 1,000 ML IV STA (18:39)
[2018-09-22 19:03] LABS: Basophils % (A) 0 %; Eosinophils # (A) 0.1 k/uL (0-0.7); Eosinophils % (A) 1 %; HCT 38.9 % (34.0-46.0); HGB 12.8 gm/dL (11.4-16.0); Lymphocytes # (A) 1.6 k/uL (1.0-4.8); Lymphocytes % (A) 24 %; MCH 29.2 pg (25.0-35.0); MCV 88.7 fL (80.0-100.0); Mean Platelet Volume 7.2; Monocytes # (A) 0.4 k/uL (0-1.0); Monocytes % (A) 6 %; Neutrophils # (A) 4.4 k/uL (1.3-7.7); Neutrophils % (A) 67 %; Platelet Count 199 k/uL (150-450); RBC 4.39 m/uL (3.80-5.40); RDW 13.9 % (11.5-15.5); WBC 6.5 k/uL (3.8-10.6)
[2018-09-22 19:13] LABS: Creatine Kinase 40 U/L (30-135)
[2018-09-22 19:14] LABS: Albumin 4.4 g/dL (3.5-5.0); Calcium 9.4 mg/dL (8.4-10.2); Magnesium 1.7 mg/dL (1.6-2.3); Phosphorus 4.5 mg/dL (2.5-4.5); Total Bilirubin 0.4 mg/dL (0.2-1.3); Total Protein 7.7 g/dL (6.3-8.2)
[2018-09-22 19:15] LABS: Potassium 2.5 mmol/L (3.5-5.1)
--- NOTE | 2018-09-22 19:17 | CT ---
EXAMINATION TYPE: CT brain paul david con DATE OF EXAM: 09/22/2018 COMPARISON: 05/18/2018 HISTORY: Syncope and falls. CT DLP: 1154 mGycm Automated exposure control for dose reduction was used. TECHNIQUE: CT scan of the head and cervical spine are performed without contrast. FINDINGS: There is previous bilateral craniotomies. There is some intermediate density fluid and wi dening of the subdural space over both parietal lobes consistent with chronic subdural hematomas. I s ee no definite acute subdural. There is no midline shift. Cervical vertebra show normal alignment. There is degenerative mild disc space narrowing from C4 to C 7 with mild spurring. Facet joints are intact. Skull base is intact. Prevertebral soft tissues appear normal. IMPRESSION: Chronic bilateral small subdural hematomas are significantly decreased compared to 08/15/2018. No ritchie dence of acute subdural hemorrhage. Mild spondylotic changes in the cervical spine. No fracture. No change compared to old exam. Subdural fluid measures up to 5 mm in maximum thickness.
--- NOTE | 2018-09-22 19:18 | XR ---
EXAMINATION TYPE: XR chest 2V DATE OF EXAM: 09/22/2018 COMPARISON: 08/15/2018 HISTORY: Syncope TECHNIQUE: Frontal and lateral views of the chest are obtained. FINDINGS: Heart and mediastinum are normal. Lungs are clear. Diaphragm is normal. Bony thorax appear s normal. There are chest leads. IMPRESSION: Normal chest. No change.
--- NOTE | 2018-09-22 19:19 | XR ---
EXAMINATION TYPE: XR pelvis AP view DATE OF EXAM: 09/22/2018 COMPARISON: NONE HISTORY: Syncope TECHNIQUE: Single view FINDINGS: Pelvic ring is intact. Proximal femurs and hip joints are intact. Sacroiliac joints appear normal. IMPRESSION: Normal pelvis
[2018-09-22 19:22] LABS: INR 0.9 (<1.2)
[2018-09-22 19:26] LABS: Creatine Kinase MB 0.5 ng/mL (0.0-2.4); Troponin I <0.012 ng/mL (0.000-0.034)
[2018-09-22 19:32] LABS: Appearance,Urine Clear (Clear); Bilirubin,Urine Negative (Negative); Blood,Urine Negative (Negative); Color,Urine Light Yellow; Glucose,Urine (UA) Negative (Negative); Ketones,Urine Negative (Negative); Leukocyte Esterase,Urine Negative (Negative); Nitrite,Urine Negative (Negative); PH, Urine 6.5 (5.0-8.0); Protein,Urine Negative (Negative); Specific Gravity,Urine 1.008 (1.001-1.035); Urobilinogen,Urine <2.0 mg/dL (<2.0)
[2018-09-22 19:33] LABS: Partial Thromboplastin Time 21.3 sec (22.0-30.0)
[2018-09-22] MEDS ORDERED: SODIUM CHLORIDE 0.9% 1,000 ML IV ONE (21:28)
[2018-09-22] MEDS: POTASSIUM CHLORIDE 20 MEQ in WATER FOR INJECTION 1 100ML.BAG IVPB SCH (21:55)
[2018-09-23] MEDS ORDERED: POTASSIUM CHLORIDE ER 20 MEQ TAB.ER PO STA (00:28)
--- NOTE | 2018-09-23 00:40 | P.HPIM ---
History of Present Illness H&P Date: 09/22/18 Chief Complaint: Syncope 73-year-old female with history of hypothyroid and bipolar disorder. Patient had recent history of chronic subdural hematoma for which she required surgical evacuation back in the end of July 2018 Patient presented today due to 2 attacks of syncope. She woke up this morning she felt generalized weakness however she was able to power through it and started walking to the bathroom, she fell on her way due to generalized weakness but she caught herself did not hit her head did not pass out that she manage to get to the bathroom and that's when she had syncope and fell to the ground hitting her head after she woke up she felt nauseated with dry heaves. She denies any symptoms prior to the fall she denies any palpitations dizziness or lightheadedness denies any difficulty in breathing or any chest pain before or after the fall. She felt that she woke up immediately after her syncopal attack. She remained for the rest of the day and her pajama resting on her couch continues to feel weak and tired she was able to eat some food and had some pop but did not feel any improvement. Her family insisted that she comes to the hospital for evaluation. She recalls falling in February where she hit her head hard however he she did not seek medical attention. Then this was followed by another syncopal attack where she didn't get injured as her son was able to catch her before falling and was denied to Thanksgiving when she was brought to the hospital and found to have chronic subdural hematoma requiring neurosurgical intervention. She denies being on any blood thinners or aspirin. She reports taking diuretics due to bilateral leg swelling. She used to take supplemental potassium with that however she has stopped it a month ago. She had noticed that her urine darker these days. Otherwise she denies any GI bleeding denies any chest pain or trouble breathing denies any fevers or chills denies any headache denies any new onset focal neurologic deficits In the ED she was found to be hypokalemic with elevated creatinine thought to be dehydrated and was admitted for neurologic monitoring, IV fluid hydration and replacement of her potassium Review of Systems Pertinent positives as noted in HPI. All other systems were reviewed and are negative Past Medical History Past Medical History: No Reported History, Thyroid Disorder Additional Past Medical History / Comment(s): Chronic subdural hematoma History of Any Multi-Drug Resistant Organisms: None Reported Past Surgical History: Orthopedic Surgery Additional Past Surgical History / Comment(s): Right shoulder surgery, left foot bone spur Past Psychological History: Anxiety, Bipolar, Depression Smoking Status: Former smoker Past Alcohol Use History: None Reported Past Drug Use History: None Reported - Past Family History Family Family Medical History: No Reported History Medications and Allergies Home Medications Medication Instructions Recorded Confirmed Type Escitalopram [Lexapro] 30 mg PO DAILY 04/26/18 09/22/18 History Levothyroxine Sodium [Synthroid] 88 mcg PO DAILY 04/26/18 09/22/18 History QUEtiapine FUMARATE [SEROquel] 300 mg PO HS 04/26/18 09/22/18 History busPIRone HCl [Buspar] 10 mg PO TID 04/26/18 09/22/18 History Klor Con (Unknown Dose) 1 tab PO DAILY 09/22/18 09/22/18 History QUEtiapine FUMARATE 300 mg PO QAM 09/22/18 09/22/18 History Allergies Allergy/AdvReac Type Severity Reaction Status Date / Time amoxicillin AdvReac Nausea & Verified 09/22/18 19:26 Vomiting erythromycin base AdvReac Unknown Verified 09/22/18 19:26 Penicillins AdvReac Nausea & Verified 09/22/18 19:26 Vomiting Physical Exam Vitals: Vital Signs Temp Pulse Resp BP Pulse Ox 09/22/18 22:30 98.2 F 75 16 128/83 99 09/22/18 20:41 16 09/22/18 20:32 16 09/22/18 20:05 81 16 103/74 09/22/18 17:51 97.9 F 89 18 142/93 96 Intake and Output 09/22/18 09/22/18 09/23/18 14:59 22:59 06:59 Other: Weight 41.73 kg Constitutional: No acute distress, conversant, pleasant Eyes: Anicteric sclerae, moist conjunctiva, no lid-lag Pupils equal round reactive to light, no nystagmus ENMT: NC/AT Oropharynx clear, no erythema, exudates Neck: Supple, FROM, no masses, or JVD No carotid bruits No thyromegaly Lungs: Clear to auscultation Clear to percussion Normal respiratory effort, no accessory muscle use Cardiovascular: Heart regular in rate and rhythm, No murmurs, gallops, or rubs No peripheral edema Abdominal: Soft Nontender, no guarding, rebound or rigidity Abdomen moving with respiration Normoactive bowel sounds No hepatomegaly, No splenomegaly No palpable mass No abdominal wall hernia noted Skin: Normal temperature, tone, texture, turgor No induration No subcutaneous nodules No rash, lesions No ulcers Extremities: No digital cyanosis No clubbing Pedal pulses intact and symmetrical Radial pulses intact and symmetrical No calf tenderness Psychiatric: Alert and oriented to person, place and time Appropriate affect fair judgment Neuro Muscles Strength 5/5 in all 4 extremities Sensation to light touch grossly present throughout Cranial nerves II-XII grossly intact No focal sensory deficits Lymphatics: no palpable cervical or supraclavicular , or inguinal lymph nodes Results CBC & Chem 7: 09/22/18 17:50 09/22/18 17:50 Labs: Abnormal Lab Results - Last 24 Hours (Table) 09/22/18 09/22/18 Range/Units 17:50 17:50 APTT 21.3 L (22.0-30.0) sec Potassium 2.5 L* (3.5-5.1) mmol/L BUN 34 H (7-17) mg/dL Creatinine 1.57 H (0.52-1.04) mg/dL Glucose 159 H (74-99) mg/dL Alkaline Phosphatase 140 H (38-126) U/L Microbiology - Last 24 Hours (Table) 09/22/18 17:50 Urine Culture - Preliminary Urine,Voided Assessment and Plan Assessment: 73-year-old female with history of hypothyroid, bipolar disorder. Admitted as inpatient with anticipated length of stay more than 48 hours due to generalized weakness and syncope. She was found to be hypokalemic. Patient recently had subdural hematoma 1 month ago. Repeat CAT scan showed small chronic subdural hematoma with no acute changes otherwise. there was also evidence of acute kidney injury admitted for potassium replacement and hydration, and close monitoring of her neurologic status Plan: Syncope Generalized weakness Hypokalemia Fall precautions, neurologic assessment every 2 hours Computed tomography scan of the head showed improvement in small chronic subdural hematoma no acute process otherwise Replace potassium IV and by mouth Monitor potassium levels Discontinue home diuretics Acute kidney injury secondary to prerenal ATN from dehydration Discontinue home diuretics IV fluid hydration Monitor renal function Monitor urine output Small chronic subdural hematoma Patient had chronic subdural hematoma requiring surgery back in end July 2018 Neurochecks every 2 hours PT/OT DVT prophylaxis mechanical History of bipolar disorder continue home meds Hypothyroidism continue levothyroxine Check renal function potassium and magnesium and morning Preformed a thorough record review from recent hospitalization where she was found to have chronic subdural hematoma was transferred for neurosurgical evaluation where she had craniotomy to evacuate the subdural hematoma. At that time patient had a significant fall in February 2018 that she didn't see a doctor for and then had the syncope on the day of presentation july where she was found to have a chronic subdural hematoma Surrogate decision-maker: Patient's son CODE STATUS: No code Discussed with: Patient, ER, RN Anticipated discharge: 48-[address]: Home A total of 60 minutes was spent on the care of this complex patient more than 50% of the time was spent in counseling and care coordination.
[2018-09-23] MEDS: POTASSIUM CHLORIDE 20 MEQ in WATER FOR INJECTION 1 100ML.BAG IVPB SCH (01:07)
[2018-09-23] MEDS: busPIRone HCl 10 MG TAB PO SCH ×3 (01:23→21:43)
[2018-09-23] MEDS: QUEtiapine 100 MG TAB PO SCH ×3 (01:39→21:43)
[2018-09-23] MEDS: LEVOTHYROXINE 88 MCG TAB PO SCH (05:23)
[2018-09-23 07:41] LABS: Albumin 3.4 g/dL (3.5-5.0); Calcium 9.1 mg/dL (8.4-10.2); Magnesium 1.7 mg/dL (1.6-2.3); Potassium 3.2 mmol/L (3.5-5.1); Total Bilirubin 0.6 mg/dL (0.2-1.3); Total Protein 6.2 g/dL (6.3-8.2)
[2018-09-23 07:43] VITALS: RESP 16
[2018-09-23] MEDS ORDERED: busPIRone HCl 10 MG TAB PO SCH (09:00)
--- NOTE | 2018-09-23 10:37 | P.PN ---
Subjective Patient is 73-year-old female who has history of bipolar disorder and recent history of subdural hematoma. She was admitted after a fall at home and possible syncopal episode. Patient states that she's was feeling very weak all day yesterday and tired. At one point she stood up and walked to the bathroom. Before she did anything she started feeling very tired lightheaded and she fell down and she feels that she may loss of consciousness. Her son came in and help her out EMS was called. No seizure-like activity was described. She regained her consciousness fairly quick and there was no confusion tongue biting or incontinence. In the emergency department and found to have a low potassium 2.5. Patient is telling me that she's been on the water pill. She cannot tell me exactly which one was 8 but that's she felt that didn't quite dehydrated and feeling tired of it. Also she was on antiseizure medications at. A week ago by neurosurgery she was doing well on this admission is a have any need for further. This morning her potassium is much better 3.4 and she was rehydrated her blood pressure is better. Her creatinine is improving. She is reporting feeling much better stronger and basically at baseline. She denies shortness of breath dizziness chest pain lightheadedness abdominal pain nausea vomiting or any other discomfort. Objective - Vital Signs Vital signs: Vital Signs Temp 98.6 F 09/23/18 07:36 Pulse 81 09/23/18 07:36 Resp 16 09/23/18 07:36 BP 129/69 09/23/18 07:36 Pulse Ox 96 09/23/18 07:36 Intake & Output 09/22/18 09/23/18 09/23/18 18:59 06:59 18:59 Intake Total 200 Balance 200 Weight 41.73 kg Intake: Intake, IV Titration 200 Amount Potassium Chloride 20 meq 200 In Water For Injection 1 100ml.bag @ 50 mls/hr IVPB Q2H [facility] Rx#: [id number] Other: # Voids 1 1 - Exam Vital Signs: I have reviewed the vital signs. GENERAL: Well-nourished, Well-developed , no apparent distress, cooperative Eyes: PERRL, extraoculry movements intact, clear conjunctiva Head: : Atraumatic external nose and ears, oropharyngeal mucosa is moist without lesions or exudates Neck: Symmetric, trachea midline, No thyromegaly, no masses or neck vain pulsation, no neck rigidity CVS: +S1/S2, No murmurs or gallops. Peripheral pulses 2+ and equal in all extremities. RESP: Unlabored respiratory effort. Clear to auscultation bilaterally. Abdomen: Bowel sounds present in all 4 quadrants, Soft to palpation, Nontender/ Nondistended, No hepatosplenomegaly, no hernias or masses, no CVA tnderness Musculoskeletal: Extremities w/o deformity, No cyanosis or clubbing, no joint swelling Skin: Warm, Dry. No rashes or lesions Neuro: supervisor slate splitting II-XII grossly intact, motor strenght 5/5 i upper and lower extremities, no clonus, patellar DTRs 2+ and sympetrical Psych: Awake, Alert, & Oriented (AAO) x3 Appropriate mood and affect - Labs CBC & Chem 7: 09/22/18 17:50 09/23/18 06:35 Labs: Abnormal Lab Results - Last 24 Hours (Table) 09/22/18 09/22/18 09/23/18 Range/Units 17:50 17:50 06:35 APTT 21.3 L (22.0-30.0) sec Potassium 2.5 L* 3.2 L (3.5-5.1) mmol/L Chloride 108 H (98-107) mmol/L BUN 34 H 28 H (7-17) mg/dL Creatinine 1.57 H 1.21 H (0.52-1.04) mg/dL Glucose 159 H 110 H (74-99) mg/dL Alkaline Phosphatase 140 H (38-126) U/L Total Protein 6.2 L (6.3-8.2) g/dL Albumin 3.4 L (3.5-5.0) g/dL Microbiology - Last 24 Hours (Table) 09/22/18 17:50 Urine Culture - Preliminary Urine,Voided Assessment and Plan Plan: 1. Syncope Appears to be orthostatic in nature in patient on large dose of Seroquel and diuretics with severe hypokalemia and acute kidney injury. Patient overall improved after hydration and potassium replacement and feeling now at baseline We will mobilize the patient did increase her activity Physical therapy to see the patient Check orthostatics. If continues to have orthostatic lightheadedness or problems we will review her Seroquel dosing Discussed with patient about her diuretics she takes sit for leg swelling. Currently she does not have any leg swelling and advise her to take it on a when necessary basis. 2. Hypokalemia severe Replace potassium 2.4 this morning We'll add one small dose of potassium this morning as well 3. Acute kidney injury Likely prerenal due to dehydration Creatinine improving after IV fluids Electrolytes stable serum bicarb is normal and she's been having satisfactory urine output 4. Bipolar disorder She is on multiple home medication for this and we will review this further with patient's
[2018-09-23] MEDS: ESCITALOPRAM 10 MG TAB PO SCH (10:44)
[2018-09-23 11:21] VITALS: BMI 17.9
[2018-09-23] MEDS ORDERED: POTASSIUM BICARBONATE/CIT AC 20 MEQ TABLET.EFF PO ONE (14:07)
[2018-09-23] MEDS ORDERED: QUEtiapine 100 MG TAB PO SCH (21:00)
[2018-09-24] MEDS: LEVOTHYROXINE 88 MCG TAB PO SCH (05:54)
[2018-09-24 08:31] LABS: Calcium 8.9 mg/dL (8.4-10.2); Potassium 3.5 mmol/L (3.5-5.1)
[2018-09-24] MEDS ORDERED: SODIUM CHLORIDE 0.9% 500 ML 500 ML IV ONE (09:33)
[2018-09-24] MEDS: busPIRone HCl 10 MG TAB PO SCH (10:28)
[2018-09-24] MEDS: QUEtiapine 100 MG TAB PO SCH (10:28)
[2018-09-24] MEDS: ESCITALOPRAM 10 MG TAB PO SCH (10:28)
[2018-09-24 16:29] VITALS: BP 121/67; PULSE 77; TEMP 98.4
--- NOTE | 2018-09-24 19:03 | P.DS ---
Providers Date of admission: 09/22/18 21:28 Attending physician: Juvenal Armenta MD Primary care physician: [facility] Hospital Course: reason for admission: 73-year-old female with history of subdural hematoma and bipolar disorder presented with what appears to be a syncopal episode. She reported that after she get up from her chair and went to the bathroom she became lightheaded and she fell on the floor. She denies any prodromal symptoms in terms of chest pain palpitations shortness of breath or. Her son witnessed this and there was no any shakes or body shaking or jerks. He called EMS and she was transferred to emergency department. There was no any confusion urinary or stool incontinence or tongue biting. Upon arrival it was noted that her blood pressures been low and she was given IV fluids at that point emergency department she was found to have elevated creatinine and potassium 2.4. He has no known history of chronic kidney disease. Hospital course Patient initially had trauma workup with CT of the head and cervical spine pelvis and chest x-ray CT of the head showed chronic and decreasing in size of previously noted subdural hematoma from July 2018 without any acute findings. Cervical neck spine was unremarkable that was chronic changes. Patient reported subsequently that recently her dose of Seroquel was increased due to worsening anxiety also she states that she was taking Lasix due to leg swelling 40 mg twice a day. She states that occasionally in the last few days prior to this event she's been getting lightheaded every time she was getting up from the chair. She noticed decreased amount of urine and darkening of the urine. There was no any fever or chills or any other symptoms In the hospital she was started on IV fluids. Also was noted that her potassium being 2.4 and this was replaced orally and IV. Follow-up potassium was 3.5. With this regimen her blood pressure improved established and orthostatics at the day of discharge were negative. She was getting up and ambulating with physical therapy without any dizziness and she felt much quite stronger. She also had mild elevation in creatinine that improved after IV fluids. disposition: On day of Schweiss unevaluated to the patient the room. She reported feeling much better and more energetic and her fatigue has resolved. Her potassium was normal blood pressure stable in 100 110 range with normal heart rate afebrile and her orthostatics were negative. She was given a bit of it looked more fluid and encouraged to eat and intake of fluids. Physical exam she was awake alert oriented 3 in any. Distress she denied any vertigo or any other focal deficits Head and neck nontraumatic and there is no facial asymmetry Lungs are clear to auscultation cardiac we will schedule regular rhythm and rate abdomen soft and distended and extremities without any edema Neurologically she had a good strength in upper and lower extremities and no cranial nerve deficits [id number] and [id number] were negative Area and as per review of his physical therapy her ambulation was strong and very well coordinated and she ambulated down the hallway with minimal assistance next line Patient was discharged home to care off her son will transport her home in stable her. Patient was advised to discontinue Lasix. We discuss any option of going to previous dose of Seroquel as this medication can also cause some orthostasis but patient express concern of decreasing the cerebral due to worsening anxiety. We discussed the patient for now stays off of the diuretics and continue with current Seroquel and in case her orthostatic symptoms become again bothers him to consider discussing this further with her primary care physician about adjusting this medication. She was advised to have good by mouth intake and keep herself hydrated and to slowly get up from laying or sitting position to standing position Plan - Discharge Summary Discharge Rx Participant: No New Discharge Prescriptions: Continue QUEtiapine FUMARATE [SEROquel] 300 mg PO HS Levothyroxine Sodium [Synthroid] 88 mcg PO DAILY busPIRone HCl [Buspar] 10 mg PO TID Escitalopram [Lexapro] 30 mg PO DAILY QUEtiapine FUMARATE 300 mg PO QAM Discharge Medication List Escitalopram [Lexapro] 30 mg PO DAILY 04/26/18 [History] Levothyroxine Sodium [Synthroid] 88 mcg PO DAILY 04/26/18 [History] QUEtiapine FUMARATE [SEROquel] 300 mg PO HS 04/26/18 [History] busPIRone HCl [Buspar] 10 mg PO TID 04/26/18 [History] QUEtiapine FUMARATE 300 mg PO QAM 09/22/18 [History] Follow up Appointment(s)/Referral(s): Jarrod Keenan MD [Primary Care Provider] - 1-2 days Patient Instructions/Handouts: Hypokalemia (DC), Syncope (DC) Discharge Disposition: HOME SELF-CARE
== END 2018-09-24 17:11 | disposition home or self-care (01) | DRG 682 ==
LOC: EC 17:31 → 4SSUR 21:28
PROVIDERS: ADMIT Internal Medicine; ATTEND Internal Medicine
DX: N17.9 Acute kidney failure, unspecified (principal); I62.03 Nontraumatic chronic subdural hemorrhage; R55 Syncope and collapse; M25.552 Pain in left hip; E03.9 Hypothyroidism, unspecified; E86.0 Dehydration; E87.6 Hypokalemia; F03.90 Unspecified dementia, unspecified severity, without behavioral disturbance, psychotic disturbance, mood disturbance, and anxiety; F41.9 Anxiety disorder, unspecified; F32.9 Major depressive disorder, single episode, unspecified; R29.6 Repeated falls; Z79.890 Hormone replacement therapy; Z79.899 Other long term (current) drug therapy; Z87.891 Personal history of nicotine dependence; Z91.81 History of falling; Z88.1 Allergy status to other antibiotic agents; Z88.0 Allergy status to penicillin; W18.30XA Fall on same level, unspecified, initial encounter; Y92.002 Bathroom of unspecified non-institutional (private) residence as the place of occurrence of the external cause
CPT/HCPCS: 36415; 70450; 71046; 72125; 72170; 80048; 80053; 81003; 82550; 82553; 83735; 84100; 84484; 85025; 85610; 85730; 87086; 93005; 96361; 96365; 96366; 99285

== ENCOUNTER 2021-02-23 16:16 | Inpatient (IN) | payer MEDICARE ==
--- NOTE | 2021-02-23 16:26 | ED ---
General Adult HPI - General Stated complaint: Hip pain Time Seen by Provider: 02/23/21 16:17 Source: patient, EMS, RN notes reviewed Mode of arrival: EMS Limitations: no limitations - History of Present Illness Initial comments: Patient is a pleasant 75-year-old female presenting to the emergency Department with right hip discomfort. Patient has dementia and is a poor historian. Patient states she tripped and fell this morning. Patient has discomfort right hip. No head injury or other area of concern. No neck or back pain. No chest pain or dyspnea. No abdominal pain. No known history of similar symptoms previously. - Related Data Home Medications Medication Instructions Recorded Confirmed Escitalopram [Lexapro] 30 mg PO DAILY 04/26/18 09/22/18 Levothyroxine Sodium [Synthroid] 88 mcg PO DAILY 04/26/18 09/22/18 QUEtiapine FUMARATE [SEROquel] 300 mg PO HS 04/26/18 09/22/18 busPIRone HCl [Buspar] 10 mg PO TID 04/26/18 09/22/18 QUEtiapine FUMARATE 300 mg PO QAM 09/22/18 09/22/18 Allergies Allergy/AdvReac Type Severity Reaction Status Date / Time amoxicillin AdvReac Nausea & Verified 02/23/21 16:35 Vomiting erythromycin base AdvReac Unknown Verified 02/23/21 16:35 Penicillins AdvReac Nausea & Verified 02/23/21 16:35 Vomiting Review of Systems ROS Statement: Those systems with pertinent positive or pertinent negative responses have been documented in the HPI. ROS Other: All systems not noted in ROS Statement are negative. Constitutional: Denies: fever Eyes: Denies: eye pain ENT: Denies: ear pain Respiratory: Denies: cough, dyspnea Cardiovascular: Denies: chest pain Endocrine: Denies: fatigue Gastrointestinal: Denies: abdominal pain Genitourinary: Denies: dysuria Musculoskeletal: Reports: as per HPI. Denies: back pain Skin: Denies: rash Neurological: Denies: headache, weakness Past Medical History Past Medical History: No Reported History Additional Past Medical History / Comment(s): Chronic subdural hematoma History of Any Multi-Drug Resistant Organisms: None Reported Past Surgical History: Orthopedic Surgery Additional Past Surgical History / Comment(s): Right shoulder surgery, left foot bone spur Past Psychological History: Anxiety, Bipolar, Depression Past Alcohol Use History: None Reported Past Drug Use History: None Reported - Past Family History Family Family Medical History: No Reported History General Exam Limitations: no limitations General appearance: alert, in no apparent distress Head exam: Present: atraumatic Eye exam: Present: normal appearance, PERRL, EOMI ENT exam: Present: normal oropharynx Neck exam: Present: normal inspection. Absent: tenderness Respiratory exam: Present: normal lung sounds bilaterally Cardiovascular Exam: Present: regular rate, normal rhythm Expanded Peripheral pulses: 2+: Dorsalis Pedis (R), Dorsalis Pedis (L) GI/Abdominal exam: Present: soft. Absent: tenderness Extremities exam: Present: tenderness (Tenderness right lateral hip. Distally the extremity is neurovascular intact.) Neurological exam: Present: alert. Absent: motor sensory deficit Psychiatric exam: Present: normal affect, normal mood Skin exam: Present: normal color Course Vital Signs 02/23/21 16:29 Temperature 98.4 F Pulse Rate 92 Respiratory 18 Rate Blood Pressure 124/73 O2 Sat by Pulse 92 L Oximetry Medical Decision Making - Medical Decision Making Patient reevaluated and updated. Case discussed with practitioner Charlee, covering for Dr. Redding, who will admit for orthopedics. - Radiology Data Interpreted by me: Right hip and pelvis x-ray concerning for right femoral neck fracture. Chest x- ray without acute abnormality. Disposition Clinical Impression: Fracture of right hip Disposition: ADMITTED IP TO THIS HOSP Is patient prescribed a controlled substance at d/c from ED?: No Referrals: None,Stated [Primary Care Provider] - 1-2 days Decision Time: 17:04
--- NOTE | 2021-02-23 17:01 | XR ---
EXAMINATION TYPE: XR chest 1V portable DATE OF EXAM: 02/23/2021 COMPARISON: 09/22/2018 HISTORY: Right hip pain TECHNIQUE: Single frontal view of the chest is obtained. FINDINGS: A coarsened interstitium. The heart is enlarged. There is no pleural effusion. Postsurgica l change right shoulder. No pneumothorax. IMPRESSION: Cardiomegaly.
--- NOTE | 2021-02-23 17:02 | XR ---
EXAMINATION TYPE: XR Hip RT and AP Pelvis DATE OF EXAM: 02/23/2021 COMPARISON: NONE HISTORY: Pain TECHNIQUE: A single AP view of the pelvis is obtained. Two views of the right hip are obtained. FINDINGS: There is a right femoral neck acute fracture. Calcifications in the pelvis likely vascular . SI joints are fairly symmetric. Degenerative change lower lumbar spine. IMPRESSION: 1. Right femoral neck fracture with mild displacement.
[2021-02-23] MEDS ORDERED: NALOXONE 0.4 MG/ML 1 ML VIAL IV PRN (17:04)
--- NOTE | 2021-02-23 18:38 | P.HPOR ---
<Jesús Rodriguez K - Last Filed: 02/23/21 18:37> History of Present Illness H&P Date: 02/23/21 This patient is a 75-year-old female with a past medical history of advanced dementia that presented to [facility] emergency department via EMS on 02/23/21 with complaints of right hip pain. Patient currently resides at a nursing facility in [place]. Patient is quite confused on exam. She states she fell this morning and felt immediate pain in the right groin. She states she is unsure how she fell, but when asked, she states she was roller skating. Per nursing, patient has been complaining of right hip pain for a few days, there was no witnessed falls. Patient denies additional injuries or areas of pain. She only complains of right hip pain. Patient denies headache, vision changes, chest pain, shortness of breath, nausea, vomiting. She denies neck or back pain. She denies numbness or tingling of the right lower extremity. Upon chart review, patient does not take blood thinners. She has no additional complaints at the time of my exam. Vital signs stable. Past Medical History Past Medical History: No Reported History Additional Past Medical History / Comment(s): Chronic subdural hematoma History of Any Multi-Drug Resistant Organisms: None Reported Past Surgical History: Orthopedic Surgery Additional Past Surgical History / Comment(s): Right shoulder surgery, left foot bone spur Past Psychological History: Anxiety, Bipolar, Depression Past Alcohol Use History: None Reported Past Drug Use History: None Reported - Past Family History Family Family Medical History: No Reported History Medications and Allergies Home Medications Medication Instructions Recorded Confirmed Type Levothyroxine Sodium [Synthroid] 88 mcg PO DAILY@0600 /12/0902/23/21 History Acetaminophen [Tylenol 8 Hour] 650 mg PO Q4H PRN 02/23/21 02/23/21 History Dextromethorphan HBr/Quinidine 1 cap PO BID@0900,2100 02/23/21 02/23/21 History [Nuedexta 20-10 mg Capsule] Divalproex Sprinkle [Depakote 250 mg PO TID@0900,1300,2100 02/23/21 02/23/21 History Sprinkle] LORazepam [Ativan] 1 mg PO QID@06,12,18,20 02/23/21 02/23/21 History Loperamide HCl [Imodium A-D] 2 - 4 mg PO DIRECTED PRN MDD 8MG 02/23/21 02/23/21 History Mirtazapine [Remeron] 15 mg PO HS@2100 02/23/21 02/23/21 History polyethylene glycoL 3350 [Miralax] 17 gm PO BID PRN 02/23/21 02/23/21 History Allergies Allergy/AdvReac Type Severity Reaction Status Date / Time amoxicillin AdvReac Nausea & Verified 02/23/21 17:33 Vomiting erythromycin base AdvReac Unknown Verified 02/23/21 17:33 Penicillins AdvReac Nausea & Verified 02/23/21 17:33 Vomiting Physical Examination On examination, the patient is lying in bed in no apparent distress. She is alert and oriented 1. Her head appears normocephalic and atraumatic. Her breathing appears nonlabored. On inspection of her bilateral upper extremities, there are no obvious deformities or signs of trauma. On inspection of the left lower extremity, there is no obvious deformities or signs of trauma. On inspection of the right hip, there are no lacerations, abrasions, open wounds. There is pain on palpation of the right hip. Vyqbx-[id number]-kmoinh of the right hip is not tested at this time due to fracture. No pain on palpation of the right thigh, knee, lower leg, ankle, foot. No pain with passive uojkt-[id number] of the right knee, ankle. Motor and sensory function are intact of the right lower extremity. Dorsalis pedis pulse +2, right lower extremity is warm and well-perfused with brisk capillary refill distally. Results Right hip and pelvis x-ray 02/23/21: Right mildly displaced femoral neck fracture. Assessment and Plan Assessment: Right femoral neck fracture Plan: - Patient was discussed with Dr. Redding. Recommended a right hip hemiarthroplasty for the patient's right hip fracture. We will plan for surgery tomorrow pending medical clearance and consent. Internal medicine is consulted for medical clearance. - Bed rest. Non-weight bearing right lower extremity. Pain management as needed. - NPO diet at midnight. <Demetrice Redding - Last Filed: 02/24/21 10:09> Physical Examination Osteopathic Statement: *. No significant issues noted on an osteopathic structural exam other than those noted in the History and Physical/Consult. Results - Labs Labs: Abnormal Lab Results - Last 24 Hours (Table) 02/23/21 02/23/21 Range/Units 18:22 18:22 WBC 12.7 H (3.8-10.6) k/uL Neutrophils # 8.9 H (1.3-7.7) k/uL Monocytes # 1.5 H (0-1.0) k/uL BUN 25 H (7-17) mg/dL Glucose 122 H (74-99) mg/dL Alkaline Phosphatase 135 H (38-126) U/L Total Protein 5.9 L (6.3-8.2) g/dL Albumin 3.1 L (3.5-5.0) g/dL H & H 02/23/21 Range/Units 18:22 Hgb 12.0 (11.4-16.0) gm/dL Hct 36.2 (34.0-46.0) % Coagulation 02/23/21 Range/Units 18:22 INR 0.9 (<1.2) Result Diagrams: 02/23/21 18:22 02/23/21 18:22 Assessment and Plan Plan: I was able to review the images see the patient and review the dictation above. The patient has a right hip acute femoral neck fracture with displacement. I think her best course of treatment would be to pursue right hip hemiarthroplasty as planned above. This would give her the best chance for regaining mobilization and for continued care and transfer training with early mobilization. We'll plan to proceed with surgical intervention today once she is cleared with medicine. She should continue nothing by mouth
[2021-02-23 19:01] LABS: INR 0.9 (<1.2); Prothrombin Time 9.9 sec (9.0-12.0)
[2021-02-23 19:29] LABS: Basophils # (A) 0.1 k/uL (0-0.2); Basophils % (A) 1 %; Eosinophils # (A) 0.2 k/uL (0-0.7); Eosinophils % (A) 1 %; HCT 36.2 % (34.0-46.0); Lymphocytes % (A) 16 %; MCH 30.5 pg (25.0-35.0); MCHC 33.1 g/dL (31.0-37.0); MCV 92.3 fL (80.0-100.0); Mean Platelet Volume 7.6; Monocytes # (A) 1.5 k/uL (0-1.0); Monocytes % (A) 12 %; Neutrophils # (A) 8.9 k/uL (1.3-7.7); Neutrophils % (A) 70 %; Platelet Count 197 k/uL (150-450); RBC 3.92 m/uL (3.80-5.40); RDW 13.9 % (11.5-15.5); WBC 12.7 k/uL (3.8-10.6)
[2021-02-23 19:35] LABS: Albumin 3.1 g/dL (3.5-5.0); Calcium 8.6 mg/dL (8.4-10.2); Potassium 4.2 mmol/L (3.5-5.1); Total Bilirubin 0.3 mg/dL (0.2-1.3); Total Protein 5.9 g/dL (6.3-8.2)
[2021-02-23] MEDS: SODIUM CHLORIDE 0.9% 1,000 ML IV SCH (19:52)
[2021-02-23] MEDS ORDERED: MORPHINE SULFATE 2 MG/ML SYRINGE IVP PRN (19:55)
--- NOTE | 2021-02-24 10:29 | P.CONS ---
History of Present Illness - History of Present Illness This is a pleasant 75 years old female with past medical history of anxiety, bipolar depression, chronic subdural hematoma. No documents of her PCP. Patient herself is poor historian. Patient was transferred from [facility]. She is a resident of the [facility] [place] When I talked to the patient she is fully awake and oriented and answering my questions however she thinks she is in her school when I told her she is in the hospital she said "no, I am in a school", she thinks it is 1945. And she thinks the name of the president is "sabrina" . She knew she fell but she cannot tell if she passed out or not. She told me she was complaining of from hip pain earlier but not now. She denies chest pain, no abdominal pain. No difficulty breathing. No urinary or bowel complaints. She denies fever She admits taking Ativan at home but she cannot say if she has seizure or no. She is hemodynamically stable, she is saturating 92-94% on room air Labs showing leukocytosis of 12.7 K, rest of CBC, INR, basic metabolic panel and liver enzymes are unremarkable. Coronavirus not detected. Chest x-ray showing cardiomegaly, no pleural effusion. Pelvic and hip surgery showing right femoral neck fracture with mild displacement No EKG was seen in the paper or electronic chart so we ordered EKG: Normal sinus rhythm at [address] no [address]-T changes, she has some Q-wave in the inferior leads. Looks not new. And Q Tese is 434 On reviewing the records from [facility] showing Liver enzymes are mildly elevated with AST 92 with reference rate 13-39, ALT 71 with reference range is 7-52, total bilirubin is normal at 0.3. WBC is normal 7.1K, hemoglobin 12.4, platelets slightly low 124k. Valproic acid level is acceptable at 98 with reference range is 50-100 Review of Systems CONSTITUTIONAL: No fever, no malaise, no fatigue. HEENT: No recent visual problems or hearing problems. Denied any sore throat. CARDIOVASCULAR: No orthopnea, PND, no palpitations, no syncope. PULMONARY: No shortness of breath, no cough, no hemoptysis. GASTROINTESTINAL: No diarrhea, no nausea, no vomiting, no abdominal pain. Normoactive bowel sounds. NEUROLOGICAL: No headaches, no weakness, no numbness. HEMATOLOGICAL: Denies any bleeding or petechiae. GENITOURINARY: Denies any burning micturition, frequency, or urgency. MUSCULOSKELETAL/RHEUMATOLOGICAL: Denies any joint pain, swelling, or any muscle pain. ENDOCRINE: Denies any polyuria or polydipsia. Past Medical History Past Medical History: No Reported History Additional Past Medical History / Comment(s): Chronic subdural hematoma History of Any Multi-Drug Resistant Organisms: None Reported Past Surgical History: Orthopedic Surgery Additional Past Surgical History / Comment(s): Right shoulder surgery, left foot bone spur Past Psychological History: Anxiety, Bipolar, Depression Past Alcohol Use History: None Reported Past Drug Use History: None Reported - Past Family History Family Family Medical History: No Reported History Medications and Allergies Home Medications Medication Instructions Recorded Confirmed Type Levothyroxine Sodium [Synthroid] 88 mcg PO DAILY@0600 08//18 02/23/21 History Acetaminophen [Tylenol 8 Hour] 650 mg PO Q4H PRN 02/23/21 02/23/21 History Dextromethorphan HBr/Quinidine 1 cap PO BID@0900,2100 02/23/21 02/23/21 History [Nuedexta 20-10 mg Capsule] Divalproex Sprinkle [Depakote 250 mg PO TID@0900,1300,209902/23/21 02/23/21 History Sprinkle] LORazepam [Ativan] 1 mg PO QID@06,12,18,20 02/23/21 02/23/21 History Loperamide HCl [Imodium A-D] 2 - 4 mg PO DIRECTED PRN MDD 8MG 02/23/21 02/23/21 History Mirtazapine [Remeron] 15 mg PO HS@2100 02/23/21 02/23/21 History polyethylene glycoL 3350 [Miralax] 17 gm PO BID PRN 02/23/21 02/23/21 History Allergies Allergy/AdvReac Type Severity Reaction Status Date / Time amoxicillin AdvReac Nausea & Verified 02/23/21 17:33 Vomiting erythromycin base AdvReac Unknown Verified 02/23/21 17:33 Penicillins AdvReac Nausea & Verified 02/23/21 17:33 Vomiting Physical Exam Vitals: Vital Signs Temp Pulse Resp BP Pulse Ox 02/24/21 02:44 98.7 F 85 14 110/64 94 L 02/23/21 19:42 85 18 140/98 94 L 02/23/21 16:29 98.4 F 92 18 124/73 92 L Intake and Output 02/23/21 02/24/21 02/24/21 22:59 06:59 14:59 Other: Weight 49.895 kg -GENERAL: The patient is alert and oriented x0, not in any acute distress. Well developed, well nourished. HEENT: Pupils are round and equally reacting to light. EOMI. No scleral icterus. No conjunctival pallor. Normocephalic, atraumatic. No pharyngeal erythema. No thyromegaly. CARDIOVASCULAR: S1 and S2 present. No murmurs, rubs, or gallops. PULMONARY: Chest is clear to auscultation, no wheezing or crackles. ABDOMEN: Soft, nontender, nondistended, normoactive bowel sounds. No palpable organomegaly. MUSCULOSKELETAL: No joint swelling or deformity. -EXTREMITIES: No cyanosis, clubbing, or pedal edema. Right hip tenderness NEUROLOGICAL: Gross neurological examination did not reveal any focal deficits. SKIN: No rashes. No petechiae Results CBC & Chem 7: 02/23/21 18:22 02/23/21 18:22 Labs: Abnormal Lab Results - Last 24 Hours (Table) 02/23/21 02/23/21 Range/Units 18:22 18:22 WBC 12.7 H (3.8-10.6) k/uL Neutrophils # 8.9 H (1.3-7.7) k/uL Monocytes # 1.5 H (0-1.0) k/uL BUN 25 H (7-17) mg/dL Glucose 122 H (74-99) mg/dL Alkaline Phosphatase 135 H (38-126) U/L Total Protein 5.9 L (6.3-8.2) g/dL Albumin 3.1 L (3.5-5.0) g/dL Assessment and Plan Assessment: right femoral neck fracture with mild displacement Mild leukocytosis, could be reactive. Rule out UTI Possible dementia, with possible metabolic encephalopathy on the top of it. Chronic subdural hematoma History of bipolar depression and anxiety, not an active issue Plan: She is a pleasant 75 years old female who presents with hip fracture. Patient is at increased risk for surgery however there is no contraindication and she can proceed with surgery from a medical perspective. Labs and medication were reviewed.. Continue same treatment. Continue with symptomatic treatment. Resume home medication. Monitor lytes and vitals. DVT and GI prophylaxis. Further recommendations depends on the clinical course of the patient DVT prophylaxis and pain management as per primary surgery team GI prophylaxis: Pepcid PT/OT: Pending Prognosis is guarded
[2021-02-24 11:50] LABS: Appearance,Urine Cloudy (Clear); Bacteria,Urine Many /hpf; Bilirubin,Urine Negative (Negative); Blood,Urine Moderate (Negative); Color,Urine Yellow; Glucose,Urine (UA) Negative (Negative); Ketones,Urine Negative (Negative); Leukocyte Esterase,Urine Moderate (Negative); Mucus,Urine Occasional /hpf; Nitrite,Urine Positive (Negative); Protein,Urine Negative (Negative); RBC,Urine 100 /hpf (0-5); Specific Gravity,Urine 1.019 (1.001-1.035); WBC,Urine 27 /hpf (0-5)
[2021-02-24] MEDS: ACETAMINOPHEN TAB 325 MG TAB PO STA ×2 (13:38→13:40)
[2021-02-24] MEDS ORDERED: ACETAMINOPHEN IV (For NPO) 1,000 MG in EMPTY BAG 1 BAG IVPB STA (13:39)
[2021-02-24] MEDS ORDERED: LACTATED RINGERS 1,000 ML IV ONE (15:36)
[2021-02-24] MEDS ORDERED: ONDANSETRON 4 MG/2 ML VIAL IVP ONE (16:13)
[2021-02-24] MEDS ORDERED: ONDANSETRON 4 MG/2 ML VIAL ONE (16:17)
[2021-02-24] MEDS ORDERED: MIDAZOLAM 2 MG/2 ML VIAL ONE (16:19)
[2021-02-24] MEDS ORDERED: KETAMINE 10 MG/ML 20 ML VIAL ONE (16:19)
[2021-02-24] MEDS ORDERED: fentaNYL (PF) 50 MCG/ML 2 ML AMP ONE (16:19)
[2021-02-24] MEDS ORDERED: ceFAZolin 3,000 MG in SODIUM CHLORIDE 0.9% IRRIGATIO 3,000 ML IRRIGATION ONE (17:12)
[2021-02-24] MEDS ORDERED: SENNOSIDES-DOCUSATE SODIUM 1 EACH TAB PO PRN (17:57)
[2021-02-24] MEDS ORDERED: BENZOCAINE/MENTHOL LOZENG 1 EACH LOZENGE MUCOUS MEM PRN (17:57)
[2021-02-24] MEDS ORDERED: HYDROcodone/APAP 5-325MG 1 EACH TAB PO PRN (17:57)
[2021-02-24] MEDS ORDERED: HYDROmorphone 0.5 MG/0.5 ML SYRINGE IVP PRN (17:57)
[2021-02-24] MEDS ORDERED: ACETAMINOPHEN TAB 325 MG TAB PO PRN (17:58)
[2021-02-24] MEDS ORDERED: traMADol 50 MG TAB PO PRN (17:58)
[2021-02-24] MEDS ORDERED: NALOXONE 0.4 MG/ML 1 ML VIAL IV PRN (17:58)
--- NOTE | 2021-02-24 18:06 | P.OP ---
Date of Procedure: 02/24/21 Preoperative Diagnosis: Acute right hip femoral neck fracture, displaced status post fall traumatic Right hip pain Postoperative Diagnosis: Same Anesthesia: spinal Pathology: other (Femoral head to pathology) Condition: stable Disposition: PACU Description of Procedure: Preoperative diagnosis:Acute right hip femoral neck fracture, displaced status post fall traumatic Right hip pain Postoperative diagnosis: Same Procedure: Hip hemiarthroplasty Surgeon: Dr. Vahid Marte.: Charlee Rodriguez who is present that the entire the case persistence during positioning dissection exposure placement of hardware and closure Anesthesia: Spinal per Dr. Silva Estimated blood loss: Approximately 100 mL Components implanted: [employer] unipolar stem size 1 with a 0 neck and 43 head Disposition: To recovery room in good stable condition Operative indications The patient sustained a injury and suffered a femoral neck fracture which was displaced and angulated. We were involved in the case in regard to his hip fracture. The patient has some history of dementia and is uncertain of the events of her fall. Typically she is able to mobilize with some standby assist but has not been able to move since her fall. After evaluation it was determined that they would be a candidate for hip hemiarthroplasty via surgical intervention. This would give them the best chance of mobilization and ambulation. We discussed the range of treatment options from conservative to surgical. I discussed the issues with her family and her son specifically. We discussed the need for stabilization of her right hip so that she would be able to mobilize do appropriate hygiene and dental transfers and ambulation. They elected proceed with surgical intervention. We answered their questions to the best of our ability healing which they can understand. They signed an informed consent. Operative summary After obtaining informed consent evaluation by anesthesia, preoperative evaluation and clearance for medical service, the patient was identified and prepped Martinez area and the surgical site was marked at the right hip. There brought to the operating room where the given appropriate anesthesia with spinal anesthesia by the anesthesia department in standard fashion without any complications. Once the anesthesia was established we were able to position the patient. There placed in a lateral decubitus position with the operative side up on the right being careful to pad any bony prominences and pressure points and place a excellent roll appropriately. The airway and C-spine was monitored continuously. Once patient was well positioned lower extremity was prepped and draped in normal standard sterile fashion. An appropriate keystone protocol and timeout was completed and were able to proceed with surgery. A curvilinear incision was established over the greater trochanter. Dissection was taken down to the tensor fascia norma which was split in line with its fibers and extended proximally into the gluteal fibers. A Charnley retractor was established. The trochanteric bursa was inflamed and removed. I was able to then dissect down off the posterior aspect of the greater trochanter taking the piriformis tendon and the posterior capsule in one full-thickness flap and tacking it with suture. This expose the fracture at the femoral neck which was easily identified. A guide was used to establish the appropriate femoral neck cut and a bone- cutting saw was used to establish the femoral neck cut and good alignment and good position. All the bony fragments were removed. I was then able to use a corkscrew device to remove the femoral head from the acetabulum. Any loose fragments in the acetabulum were removed. The femoral head was measured for the appropriate size implant and then passed off for pathology. Appropriate retractors were placed and I established a lateral box cut chisel. I then used a starting reamer to establish the femoral canal . With this we then started to broach with sequential broaches to the appropriate sized to we had good fit and fill. There is no evidence any fracture in the possible femur. With the appropriate size broach well seated and stable I placed the trial neck and head. A gentle reduction was performed to get good reduction. The hip was taken through a good range of motion and found to be stable in the position of sleep and through a range of motion. It had a good shuck test. We were able to then dislocate the trial prosthesis. The broach was found to remain stable. It was then removed. The wound was copiously irrigated and suctioned dry with pulsatile lavage. The appropriate size femoral stem was chosen and positioned and placed in good alignment and good position with excellent fit and fill seated appropriately over the calcar. It was checked and found to be stable. The trunnion was cleaned and dried the femoral head was then positioned over the femoral neck malleted in position checked and found to be stable. The hip prosthesis was then gently reduced back into the acetabulum and found to have excellent position and excellent stability and excellent range of motion with stability. There is no evidence of dislocation or fracture. The wound was copiously irrigated and suctioned dry. We are able to proceed with closure. The piriformis and posterior capsule were reapproximated to the posterior aspect of the greater trochanter with transosseous stitches. The wound was irrigated and suctioned dry. The fascia was closed with #2 Quill for watertight closure. Subcutaneous tissue was irrigated and suctioned dry. Subcu tissues closed with 2-0 Vicryl subcuticular tissue was closed with 30 Quill. Wound is clean and dried and dressed with Dermabond and after foam dressing. Drapes were broken down, the hip was held in stable position, and an abduction pillow was placed. The patient was then transferred back to their hospital bed being careful to maintain the hip and C- spine alignment and airway. Once stable to patient was transferred back to the postanesthesia care unit to be readmitted for pain control and DVT prophylaxis medical management and monit oring and mobilization we will continue follow patient closely throughout their postoperative course.
--- NOTE | 2021-02-24 18:47 | XR ---
Limited right hip HISTORY: Status post right hip hemiarthroplasty Single frontal view of the right hip, correlation to x-ray 02/23/2021 There has been interval right hip arthroplasty. There is anatomic alignment. There is local artifact, lucencies present in the soft tissues. IMPRESSION: Orthopedic follow-up
[2021-02-24] MEDS: SODIUM CHLORIDE 0.9% 1,000 ML IV SCH (18:52)
[2021-02-24] MEDS: FAMOTIDINE 20 MG/2 ML VIAL IV SCH (21:23)
[2021-02-24 23:07] LABS: Basophils # (A) 0.1 k/uL (0-0.2); Basophils % (A) 1 %; Eosinophils # (A) 0.1 k/uL (0-0.7); Eosinophils % (A) 1 %; HCT 38.3 % (34.0-46.0); HGB 12.5 gm/dL (11.4-16.0); Lymphocytes # (A) 1.5 k/uL (1.0-4.8); Lymphocytes % (A) 16 %; MCH 30.4 pg (25.0-35.0); MCHC 32.6 g/dL (31.0-37.0); MCV 93.3 fL (80.0-100.0); Mean Platelet Volume 7.1; Monocytes # (A) 0.9 k/uL (0-1.0); Monocytes % (A) 9 %; Neutrophils # (A) 7.1 k/uL (1.3-7.7); Neutrophils % (A) 72 %; Platelet Count 270 k/uL (150-450); WBC 9.8 k/uL (3.8-10.6)
[2021-02-25] MEDS: ACETAMINOPHEN IV (For NPO) 1,000 MG in EMPTY BAG 1 BAG IVPB PRN ×2 (03:52→21:02)
[2021-02-25] MEDS: ASPIRIN 325 MG TAB PO SCH ×2 (10:16→21:01)
--- NOTE | 2021-02-25 11:56 | P.PN ---
Progress Note - Text Progress Note Date: 02/25/21 Orthopedics: History of present illness: Patient is a very pleasant 75-year-old female who is seen and examined at bedside for follow-up evaluation for her right hip. She is status post right hip hemiarthroplasty for acute right hip femoral neck fracture. Patient states her right hip pain has been adequately controlled. Patient answers questions appropriately at the bedside. Nursing states she has removed her own Martinez catheter twice and her IV once. Abductor pillow remains intact the patient has been having some difficulty with this. She is currently comfortable lying in bed. She is planning to work with physical therapy. She is weightbearing as tolerated on the right lower extremity. We're currently planning for discharge to [facility], where she resides. Patient has been discussed with medicine. Urine culture is currently pending. If the culture results come back, patient may be clear for discharge tomorrow. Physical Exam Hip Hemiarthroplasty: Status post surgical day number 1 Patient is examined lying in bed Patient is awake, alert, and oriented 3 Vital signs stable Good chest excursion with deep inspiration and expiration No signs or symptoms of DVT; no calf pain Lower extremity cuffs in place bilaterally Abductor pillow intact Dressing of the right hip is clean, dry, and intact; no erythema, purulence, or signs of infection No significant pain with palpation over the surgical site Full range of motion of ankles bilaterally Dorsiflexion, plantarflexion, and extensor hallucis longus positive sustained bilaterally Neurovascularly intact bilateral lower extremities Capillary refill less than 2 seconds bilateral lower extremities Assessment: Status post right hip hemiarthroplasty for right hip femoral neck fracture Right hip pain Status post fall Anxiety Bipolar depression History of chronic subdural hematoma Urinary tract infection Plan: 1. Patient may continue to weight-bear as tolerated on the right lower extremity; patient may work with physical therapy to increase mobility and ambulation 2. Continue pain control oral Tiro and Tylenol as prescribed as needed 3. Abductor pillow to remain in place at all times except while working with therapy or while sitting in a bedside chair 4. Medicine to continue following the patient for their other medical diagnoses including urinary tract infection, anxiety, and bipolar depression 5. Continue with with anticoagulation therapy with aspirin 325 mg twice a day 5. We'll continue to follow the patient; if the patient continues to improve, her pain is well-controlled, and she is cleared from a medical standpoint, we will plan to discharge her back to [facility] where she resides tomorrow, 02/26/2021 6. Patient can follow-up with Maverick Dorsey PA-C or Dr. Perez Redding at [facility] in 2-3 weeks following discharge
--- NOTE | 2021-02-25 12:11 | P.PN ---
Subjective This is a pleasant 75 years old female with past medical history of anxiety, bipolar depression, chronic subdural hematoma. No documents of her PCP. Patient herself is poor historian. Patient was transferred from [facility]. She is a resident of [facility] of [place] When I talked to the patient she is fully awake and oriented and answering my questions however she thinks she is in her school when I told her she is in the hospital she said "no, I am in a school", she thinks it is 1945. And she thinks the name of the president is "sabrina" . She knew she fell but she cannot tell if she passed out or not. She told me she was complaining of from hip pain earlier but not now. She denies chest pain, no abdominal pain. No difficulty breathing. No urinary or bowel complaints. She denies fever She admits taking Ativan at home but she cannot say if she has seizure or no. She is hemodynamically stable, she is saturating 92-94% on room air Labs showing leukocytosis of 12.7 K, rest of CBC, INR, basic metabolic panel and liver enzymes are unremarkable. Coronavirus not detected. Chest x-ray showing cardiomegaly, no pleural effusion. Pelvic and hip surgery showing right femoral neck fracture with mild displacement No EKG was seen in the paper or electronic chart so we ordered EKG: Normal sinus rhythm at 83 BPM with no significant ST-T changes, she has some Q-wave in the inferior leads. Looks not new. And Q Tese is 434 On reviewing the records from [facility] showing Liver enzymes are mildly elevated with AST 92 with reference rate 13-39, ALT 71 with reference range is 7-52, total bilirubin is normal at 0.3. WBC is normal 7.1K, hemoglobin 12.4, platelets slightly low 124k. Valproic acid level is acceptable at 98 with reference range is 50-100 02/25/2021 Patient is a status post right hip arthroplasty. Today is postop day #1. She is in bed comfortable not in distress. Does not complain from hip area pain or suprapubic abdominal pain. However she still confused about place, time and p erson. It looks like she is close to her basal mentation, patient looks pleasant. Line hemodynamically stable. However she had a fever over 100.8 this morning. Leukocytosis came back to normal at 9.0K today. She remains on ceftriaxone 2 g IV. Urine culture still pending for possible UTI. Chest disease team for persistent fever orthopedic primary team on the case Review of Systems CONSTITUTIONAL: No fever, no malaise, no fatigue. HEENT: No recent visual problems or hearing problems. Denied any sore throat. CARDIOVASCULAR: No orthopnea, PND, no palpitations, no syncope. PULMONARY: No shortness of breath, no cough, no hemoptysis. GASTROINTESTINAL: No diarrhea, no nausea, no vomiting, no abdominal pain. Normoactive bowel sounds. NEUROLOGICAL: No headaches, no weakness, no numbness. Active Medications Generic Name Dose Route Start Last Admin Trade Name Freq PRN Reason Stop Dose Admin Acetaminophen 650 mg 02/24/21 17:58 Acetaminophen Tab 325 Mg Tab PO Q4HR PRN Pain Scale 1 to 5 Hydrocodone Bitart/Acetaminophen 1 each 02/24/21 17:57 Hydrocodone/Apap 5-325mg 1 Each Tab PO Q6HR PRN Pain Aspirin 325 mg 02/25/21 09:15 02/25/21 10:16 Aspirin 325 Mg Tab PO 325 mg BID SAV Administration Benzocaine/Menthol 1 each 02/24/21 17:57 Benzocaine/Menthol Lozeng 1 Each Lozenge MUCOUS MEM Q4HR PRN Sore Throat Famotidine 20 mg 02/24/21 21:00 02/24/21 21:23 Famotidine 20 Mg/2 Ml Vial IV 20 mg HS SAV Administration Hydromorphone HCl 0.5 mg 02/24/21 17:57 Hydromorphone 0.5 Mg/0.5 Ml Syringe IVP Q4HR PRN Pain Sodium Chloride 1,000 mls @ 20 mls/hr 02/23/21 17:15 02/24/21 18:52 Saline 0.9% IV Not Given .Q24H SAV Ceftriaxone Sodium 1 gm/ 50 mls @ 100 mls/hr 02/24/21 23:15 02/24/21 23:08 Sodium Chloride IVPB 100 mls/hr Q24H SAV Administration Acetaminophen 1,000 mg/ IV 100 mls @ 400 mls/hr 02/25/21 02:42 02/25/21 03:52 Solution IVPB 02/26/21 00:14 400 mls/hr Q6HR PRN Administration Fever Morphine Sulfate 2 mg 02/23/21 19:55 Morphine Sulfate 2 Mg/Ml Syringe IVP Q4H PRN Pain/Discomfort Naloxone HCl 0.2 mg 02/23/21 17:04 Naloxone 0.4 Mg/Ml 1 Ml Vial IV Q2M PRN Opioid Reversal Senna/Docusate Sodium 1 each 02/24/21 17:57 Sennosides-Docusate Sodium 1 Each Tab PO DAILY PRN Constipation Tramadol HCl 50 mg 02/24/21 17:58 Tramadol 50 Mg Tab PO Q6HR PRN Pain Scale 1 to 5 Objective - Vital Signs Vital signs: Vital Signs Temp 99.0 F 02/25/21 08:00 Pulse 92 02/25/21 08:00 Resp 18 02/25/21 08:00 BP 129/79 02/25/21 08:00 Pulse Ox 95 02/25/21 08:00 Intake & Output 02/24/21 02/25/21 02/25/21 18:59 06:59 18:59 Intake Total 601 560 Output Total 110 750 Balance 491 -750 560 Weight 49.895 kg Intake: IV 601 560 Sodium Chloride 0.9% 1, 160 000 ml @ 20 mls/hr IV . Q24H SAV Rx#:[id number] ceFAZolin 2 gm In Sodium 400 Chloride 0.9% 50 ml @ 100 mls/hr IVPB Q8H [facility] Rx#: [id number] Output: Urine 60 750 Uretheral (Martinez) 300 Estimated Blood Loss 50 Other: Voiding Method Indwelling Catheter Diaper Incontinent - Exam GENERAL: The patient is alert and oriented x3, not in any acute distress. Well developed, well nourished. HEENT: Pupils are round and equally reacting to light. EOMI. No scleral icterus. No conjunctival pallor. Normocephalic, atraumatic. No pharyngeal erythema. No thyromegaly. CARDIOVASCULAR: S1 and S2 present. No murmurs, rubs, or gallops. PULMONARY: Chest is clear to auscultation, no wheezing or crackles. ABDOMEN: Soft, nontender, nondistended, normoactive bowel sounds. No palpable organomegaly. MUSCULOSKELETAL: No joint swelling or deformity. -EXTREMITIES: No cyanosis, clubbing, or pedal edema. Right hip wound with dressing is in place. We will defer the rest of the examination to the surgical team NEUROLOGICAL: Gross neurological examination did not reveal any focal deficits. SKIN: No rashes. no petechiae. - Labs CBC & Chem 7: 02/24/21 21:24 02/23/21 18:22 Labs: Microbiology - Last 24 Hours (Table) 02/24/21 10:50 Urine Culture - Preliminary Urine,Catheterized Assessment and Plan Assessment: right femoral neck fracture with mild displacement Mild leukocytosis, could be reactive. Rule out UTI Possible dementia, with possible metabolic encephalopathy on the top of it. Chronic subdural hematoma History of bipolar depression and anxiety, not an active issue Plan: She is a pleasant 75 years old female who presents with hip fracture. Patient is at increased risk for surgery however there is no contraindication and she can proceed with surgery from a medical perspective. Labs and medication were reviewed.. Continue same treatment. Continue with symptomatic treatment. Resume home medication. Monitor lytes and vitals. DVT and GI prophylaxis. Further recommendations depends on the clinical course of the patient DVT prophylaxis and pain management as per primary surgery team GI prophylaxis: Pepcid PT/OT: Pending Prognosis is guarded
[2021-02-25] MEDS: SODIUM CHLORIDE 0.9% 1,000 ML IV SCH (15:46)
[2021-02-25] MEDS: FAMOTIDINE 20 MG/2 ML VIAL IV SCH (21:01)
--- NOTE | 2021-02-25 23:05 | CONS ---
CONSULTATION DATE OF SERVICE: 02/25/2021 REASON FOR CONSULTATION: Fever and UTI. HISTORY OF PRESENT ILLNESS: The patient is a 75-year-old female with a past medical history significant for dementia presented to [facility] 2 days ago on February 23 for evaluation of a right hip pain discomfort. Apparently the patient tripped and fell the morning of presentation to the hospital with significant discomfort to the right hip area. Patient described to be more excruciating, almost 10 out of 10 and no radiation. The patient was evaluated by the ER physician. On arrival to the ER, the patient did have x-rays of the hip and pelvic area, which shows right femoral neck fracture with mild displacement. The patient was subsequently taken to the OR yesterday status post right hip hemiarthroplasty. The patient tolerated the procedure. The patient on presentation to the hospital was afebrile. She did spike a fever of 101 degrees yesterday afternoon and 100.8 on this morning. Workup including so far the patient did have a UA that was positive. She did have elevated white count 12.7 on admission that has subsequently normalized. Chest x-ray was negative. The patient has been started on Rocephin. Infectious Disease was consulted for further management of antibiotic therapy. The patient currently denies any headache. The patient denies having any chest pain. No shortness of breath or cough. No nausea, no vomiting. No abdominal pain. No diarrhea. Pain to the right hip is currently controlled. REVIEW OF SYSTEMS: Positive points have been mentioned in HPI. Rest of systems are negative. PAST MEDICAL HISTORY: Chronic subdural hematoma, anxiety, bipolar depression, dementia. PAST SURGICAL HISTORY: Right shoulder surgery and left foot bone spur removed. SOCIAL HISTORY: No history of smoking, drinking or drug use. FAMILY HISTORY: No pertinent findings noticed. ALLERGIES: PENICILLIN and AMOXICILLIN. MEDICATIONS: The patient is currently on Tylenol, [place], aspirin, Cepacol, Rocephin 1 g daily, Pepcid, Dilaudid, morphine sulfate, Narcan, Senokot, IV fluid and Ultram. PHYSICAL EXAMINATION: Her blood pressure is 149/82 with a pulse of 89, temperature 99.7, T-max 100.8. She is 97% on room air. General description is an elderly female lying in bed in no distress. No tachypnea or accessory muscles of respiration use. HEENT: Examination shows no pallor or scleral icterus. Oral mucous membrane is dry. NECK: Trachea central. No thyromegaly. LUNGS unlabored breathing. Clear to auscultation anteriorly. No wheeze or crackles. HEART S1, S2. Regular rate and rhythm. ABDOMEN: Soft, no tenderness. No guarding. No rigidity. No organomegaly. EXTREMITIES: No edema of the feet. SKIN: No rash or mass palpable. NEUROLOGICAL: Patient is awake, alert, oriented x3. Mood and affect normal. LABS: Hemoglobin is 12.5, white count 9.8, and admission white count was 12.7, BUN 25, creatinine 0.76. Urine is positive. Culture pending. Chest x-ray negative for any pneumonia. DIAGNOSTIC IMPRESSION AND PLAN: 1. Patient admitted to the hospital with a fall and pain to the right hip area with evidence of a right hip fracture mildly displaced, status post right hip hemiarthroplasty. The patient tolerated the procedure. Did have a fever with elevated white count, concern for possible symptomatic urinary tract infection as no other obvious focus of infection. 2. Patient with PENICILLIN allergy that will limit the number of antibiotics safe to use. PLAN: 1. Rocephin 1 g IV daily to continue. 2. Gentle IV fluid. 3. Will follow clinical condition and culture to further adjust medication if needed. Thank you for this consultation. We will follow this patient along with you. MMODL / IJN: [id number] /
[2021-02-26 02:22] LABS: Glucose,Whole Blood 106 mg/dL (75-99)
[2021-02-26 03:51] LABS: African American GFR (CKD) 82.4 (60.0-200.0); BUN/Creat Ratio 27.5 Ratio (12.00-20.00); Calcium 8.2 mg/dL (8.7-10.3); Non-African American GFR(CKD) 71.1 (60.0-200.0); Potassium 4.6 mmol/L (3.5-5.5)
[2021-02-26] MEDS: ASPIRIN 325 MG TAB PO SCH ×2 (08:14→19:57)
--- NOTE | 2021-02-26 11:16 | P.DS ---
Providers Date of admission: 02/23/21 19:04 Expected date of discharge: 02/26/21 Attending physician: Demetrice Redding Consults: 02/23/21 17:05 Consult Physician Urgent Consulting Provider: Anand Mcnair Consult Reason/Comments: medical care Do you want consulting provider notified?: Yes 02/25/21 12:03 Consult Physician Urgent Consulting Provider: Carlie Yeung Consult Reason/Comments: uti Do you want consulting provider notified?: Yes Primary care physician: Stated None - Discharge Diagnosis(es) (1) Anxiety Current Visit: Yes Status: Acute (2) Fracture of right hip Current Visit: Yes Status: Acute (3) Fall Current Visit: No Status: Acute (4) Bipolar depression Current Visit: Yes Status: Acute (5) Urinary tract infection Current Visit: Yes Status: Acute (6) Acute right hip pain Current Visit: Yes Status: Acute Hospital Course: This is a pleasant 75-year-old female who presented with a right hip femoral neck fracture status post fall. She was admitted for further treatment evaluation. She underwent a right hip hemiarthroplasty performed on 02/24/2021. Since that time her right hip pain has been well-controlled. She is not currently taking any narcotic pain medication for pain control. The patient tolerated the procedure well and did well postoperatively. Condition on day of discharge is stable. Patient resides at [facility] and will be discharged back to [facility] today pending clearance by medicine. Patient is currently being treated for urinary tract infection. Cultures have came back. Medicine is planning for antibiotics at the time of discharge. Patient was cleared preoperatively for surgery by medicine. Patient currently denies any nausea, vomiting, fever, or chills. Patient is eating and voiding freely without difficulty. Dressing over the right hip has been removed. Incision site is clean, dry, and intact with no active drainage and no sign of infection. Patient may continue to weight-bear as tolerated on the right lower extremity; patient may work with physical therapy to increase mobility and ambulation. Abductor pillow to remain in place while lying in bed. Patient given a prescription for aspirin 325 mg 1 tab twice a day for anticoagulation, dispensed #60. Patient should continue to take this medication until completion. Patient is also prescribed acetaminophen 650 mg 1 tablet every 8 hours as needed for pain, dispensed #21. Patient's other medical diagnoses include anxiety, bipolar depression, urinary tract infection, and chronic subdural hematoma. We will plan for medicine to complete her med rec and prescribe other medications as needed at the time of discharge. Physical Exam on day of discharge: Status post surgical day number 2 Patient is examined lying in bed Patient is awake, alert, and oriented 3 Vital signs stable Good chest excursion with deep inspiration and expiration No signs or symptoms of DVT; no calf pain Lower extremity cuffs in place bilaterally Abductor pillow intact Surgical site of the right hip is clean, dry, and intact; no erythema, purulence, or signs of infection No significant pain with palpation over the surgical site Full range of motion of ankles bilaterally Dorsiflexion, plantarflexion, and extensor hallucis longus positive sustained bilaterally Neurovascularly intact bilateral lower extremities Capillary refill less than 2 seconds bilateral lower extremities Procedures: Right hip hemiarthroplasty Patient Condition at Discharge: Stable Plan - Discharge Summary Discharge Rx Participant: No New Discharge Prescriptions: New Aspirin 325 mg PO BID #60 tab Acetaminophen [Tylenol 8 Hour] 650 mg PO Q8HR PRN #21 tablet.er PRN Reason: Pain No Action Levothyroxine Sodium [Synthroid] 88 mcg PO DAILY@0600 polyethylene glycoL 3350 [Miralax] 17 gm PO BID PRN PRN Reason: Constipation LORazepam [Ativan] 1 mg PO QID@06,,, Acetaminophen [Tylenol 8 Hour] 650 mg PO Q4H PRN PRN Reason: Pain Mirtazapine [Remeron] 15 mg PO HS@2100 Loperamide HCl [Imodium A-D] 2 - 4 mg PO DIRECTED PRN MDD 8MG PRN Reason: AFTER EACH LOOSE STOOL Divalproex Sprinkle [Depakote Sprinkle] 250 mg PO TID@0900,1300,2100 Dextromethorphan HBr/Quinidine [Nuedexta 20-10 mg Capsule] 1 cap PO BID@0900,2099 Discharge Medication List Levothyroxine Sodium [Synthroid] 88 mcg PO DAILY@0600 04/26/18 [History] Acetaminophen [Tylenol 8 Hour] 650 mg PO Q4H PRN 02/23/21 [History] Dextromethorphan HBr/Quinidine [Nuedexta 20-10 mg Capsule] 1 cap PO BID@0900,2100 02/23/21 [History] Divalproex Sprinkle [Depakote Sprinkle] 250 mg PO TID@0900,1300,2100 02/23/21 [History] LORazepam [Ativan] 1 mg PO QID@06,12,18,20 02/23/21 [History] Loperamide HCl [Imodium A-D] 2 - 4 mg PO DIRECTED PRN MDD 8MG 02/23/21 [Histo ry] Mirtazapine [Remeron] 15 mg PO HS@2100 02/23/21 [History] polyethylene glycoL 3350 [Miralax] 17 gm PO BID PRN 02/23/21 [History] Acetaminophen [Tylenol 8 Hour] 650 mg PO Q8HR PRN #21 tablet.er 02/26/21 [Rx] Aspirin 325 mg PO BID #60 tab 02/26/21 [Rx] Follow up Appointment(s)/Referral(s): Roxy Gibson, [NON-STAFF] - As Needed Demetrice Redding, [Doctor of Osteopathic Medicine] - 2 Weeks None,Stated [Primary Care Provider] - 1-2 days Activity/Diet/Wound Care/Special Instructions: Keep site clean. Patient may shower without dressing intact; do not soak and top Leave glue intact and allow it to fray off on its own. May ambulate as tolerated, with assistance and with weightbearing as tolerated on right lower extremity Abductor pillow to remain in place while lying in bed Right hip dislocation precautions Avoid heavy or rigorous activity. No repetitive bending twisting or lifting. . Discharge Disposition: TRANSFER TO SNF/ECF
--- NOTE | 2021-02-26 13:12 | P.PN ---
Subjective This is a pleasant 75 years old female with past medical history of anxiety, bipolar depression, chronic subdural hematoma. No documents of her PCP. Patient herself is poor historian. Patient was transferred from [facility]. She is a resident of [facility] of [place] When I talked to the patient she is fully awake and oriented and answering my questions however she thinks she is in her school when I told her she is in the hospital she said "no, I am in a school", she thinks it is 1945. And she thinks the name of the president is "sabrina" . She knew she fell but she cannot tell if she passed out or not. She told me she was complaining of from hip pain earlier but not now. She denies chest pain, no abdominal pain. No difficulty breathing. No urinary or bowel complaints. She denies fever She admits taking Ativan at home but she cannot say if she has seizure or no. She is hemodynamically stable, she is saturating 92-94% on room air Labs showing leukocytosis of 12.7 K, rest of CBC, INR, basic metabolic panel and liver enzymes are unremarkable. Coronavirus not detected. Chest x-ray showing cardiomegaly, no pleural effusion. Pelvic and hip surgery showing right femoral neck fracture with mild displacement No EKG was seen in the paper or electronic chart so we ordered EKG: Normal sinus rhythm at 83 BPM with no significant ST-T changes, she has some Q-wave in the inferior leads. Looks not new. And Q Tese is 434 On reviewing the records from [facility] showing Liver enzymes are mildly elevated with AST 92 with reference rate 13-39, ALT 71 with reference range is 7-52, total bilirubin is normal at 0.3. WBC is normal 7.1K, hemoglobin 12.4, platelets slightly low 124k. Valproic acid level is acceptable at 98 with reference range is 50-100 02/25/2021 Patient is a status post right hip arthroplasty. Today is postop day #1. She is in bed comfortable not in distress. Does not complain from hip area pain or suprapubic abdominal pain. However she still confused about place, time and p erson. It looks like she is close to her basal mentation, patient looks pleasant. Line hemodynamically stable. However she had a fever over 100.8 this morning. Leukocytosis came back to normal at 9.0K today. She remains on ceftriaxone 2 g IV. Urine culture still pending for possible UTI. Chest disease team for persistent fever orthopedic primary team on the case 02/26/2021 Patient today actually is more awake, this is the first time she told me she is in hospital and she knew its [facility]. She still is about the date thinking its 1945 and she could not tell the name of the president. No specific complaint. Patient is unaware about her diagnosis and she is really oriented regarding this both probably she will not remember due to her possible dementia Other than that Vitas looks stable, patient was afebrile today and most of yesterday except for the first 2-3 hours of the ureter morning. It looks like the patient is responding to ceftriaxone Urine culture is growing gram-negative bacilli and from the results are still pending. Objective - Vital Signs Vital signs: Vital Signs Temp 98.3 F 02/26/21 08:00 Pulse 88 02/26/21 08:00 Resp 16 02/26/21 08:00 BP 138/79 02/26/21 08:00 Pulse Ox 96 02/26/21 08:00 Intake & Output 02/25/21 02/26/21 02/26/21 18:59 06:59 18:59 Intake Total 560 Output Total 303 Balance 560 -303 Intake: IV 560 Sodium Chloride 0.9% 1, 160 000 ml @ 20 mls/hr IV . Q24H [facility] Rx#:[id number] ceFAZolin 2 gm In Sodium 400 Chloride 0.9% 50 ml @ 100 mls/hr IVPB Q8H [facility] Rx#: [id number] Output: Urine 300 Stool 3 Other: Voiding Method Diaper Diaper Incontinent Incontinent # Voids 2 - Exam GENERAL: The patient is alert and oriented x3, not in any acute distress. Well developed, well nourished. HEENT: Pupils are round and equally reacting to light. EOMI. No scleral icterus. No conjunctival pallor. Normocephalic, atraumatic. No pharyngeal erythema. No thyromegaly. CARDIOVASCULAR: S1 and S2 present. No murmurs, rubs, or gallops. PULMONARY: Chest is clear to auscultation, no wheezing or crackles. ABDOMEN: Soft, nontender, nondistended, normoactive bowel sounds. No palpable organomegaly. MUSCULOSKELETAL: No joint swelling or deformity. -EXTREMITIES: No cyanosis, clubbing, or pedal edema. Right hip wound with dressing is in place. We will defer the rest of the examination to the surgical team NEUROLOGICAL: Gross neurological examination did not reveal any focal deficits. SKIN: No rashes. no petechiae. - Labs CBC & Chem 7: 02/24/21 21:24 02/25/21 08:07 Labs: Abnormal Lab Results - Last 24 Hours (Table) 02/25/21 02/26/21 Range/Units 08:07 02:21 Carbon Dioxide 20.0 L (21.6-31.8) mmol/L BUN/Creatinine Ratio 27.50 H (12.00-20.00) Ratio Glucose 114 H (70-110) mg/dL POC Glucose (mg/dL) 106 H (75-99) mg/dL Calcium 8.2 L (8.7-10.3) mg/dL Microbiology - Last 24 Hours (Table) 02/24/21 10:50 Urine Culture - Preliminary Urine,Catheterized Gram Neg Bacilli Assessment and Plan Assessment: right femoral neck fracture with mild displacement Acute UTI, secondary to gram-negative bacilli. Final results of urine culture is improved metabolic encephalopathy, improving Possible dementia, Chronic subdural hematoma History of bipolar depression and anxiety, not an active issue Plan: She is a pleasant 75 years old female who presents with hip fracture. Continue ceftriaxone, follow-up urine culture. Discharge antibiotics based on culture results Labs and medication were reviewed.. Continue same treatment. Continue with symptomatic treatment. Resume home medication. Monitor lytes and vitals. DVT and GI prophylaxis. Further recommendations depends on the clinical course of the patient DVT prophylaxis and pain management as per primary surgery team GI prophylaxis: Pepcid PT/OT: Pending Bedside nurse is informed with the plan
[2021-02-26 19:14] LABS: Basophils # (A) 0.1 k/uL (0-0.2); Basophils % (A) 1 %; Eosinophils # (A) 0.1 k/uL (0-0.7); Eosinophils % (A) 1 %; HCT 38.4 % (34.0-46.0); HGB 11.8 gm/dL (11.4-16.0); Hypochromasia Slight; Lymphocytes # (A) 1.6 k/uL (1.0-4.8); Lymphocytes % (A) 10 %; MCH 29.5 pg (25.0-35.0); MCHC 30.8 g/dL (31.0-37.0); MCV 95.8 fL (80.0-100.0); Mean Platelet Volume 6.9; Monocytes # (A) 0.9 k/uL (0-1.0); Monocytes % (A) 6 %; Neutrophils # (A) 12.1 k/uL (1.3-7.7); Neutrophils % (A) 81 %; Platelet Count 325 k/uL (150-450); RBC 4.01 m/uL (3.80-5.40); RDW 13.9 % (11.5-15.5); WBC 14.9 k/uL (3.8-10.6)
[2021-02-26] MEDS: FAMOTIDINE 20 MG/2 ML VIAL IV SCH (19:57)
--- NOTE | 2021-02-26 20:08 | PN ---
PROGRESS NOTE DATE OF SERVICE: 02/26/2021 REASON FOR FOLLOWUP: Urinary tract infection. INTERVAL HISTORY: Patient is afebrile. The patient is breathing comfortably. Patient denies having any chest pain, shortness of breath or cough. No nausea, vomiting, abdominal pain or pain to the hip area. PHYSICAL EXAMINATION: Blood pressure 135/78 with a pulse of 97, temperature 98.8. She is 96% on room air. General description: The patient is an elderly female lying in bed in no distress. Respiratory system: Unlabored breathing, is clear to auscultation anteriorly. Heart S1, S2. Regular rate and rhythm. ABDOMEN: Soft, no tenderness. LABS: Urine showing a Gram-negative. White count 9.8. DIAGNOSTIC IMPRESSION AND PLAN: Patient admitted to the hospital with a fall in this patient who did have evidence of right hip fracture, status post operative repair with fever and positive UA concerning for a gram-negative urinary tract infection. Patient is covered with Rocephin. White count responded. Will wait for the culture to finalize to determine discharge antibiotics. Continue supportive care. MMODL / IJN: [id number] /
[2021-02-26] MEDS ORDERED: HALOPERIDOL LACTATE 5 MG/ML 1 ML VIAL IM PRN (22:34)
[2021-02-26] MEDS: QUEtiapine 25 MG TAB PO SCH (22:45)
[2021-02-26] MEDS: SODIUM CHLORIDE 0.9% 1,000 ML IV SCH (23:00)
[2021-02-27] MEDS: ASPIRIN 325 MG TAB PO SCH ×2 (07:40→20:42)
--- NOTE | 2021-02-27 11:13 | P.PN ---
Progress Note - Text Progress Note Date: 02/27/21 Orthopedics: History of present illness: Patient is a very pleasant 75-year-old female who is seen and examined at bedside for follow-up evaluation for her right hip. She is status post right hip hemiarthroplasty for acute right hip femoral neck fracture. Patient states her right hip pain has been adequately controlled. Patient answers questions appropriately at the bedside. She is very awake and alert today. Nursing states patient previously removed her own Martinez catheter twice and her IV once. Abductor pillow remains intact the patient has been having some difficulty with this. She is currently comfortable lying in bed. She is planning to work with physical therapy. She is weightbearing as tolerated on the right lower extremity. We're currently planning for discharge to [facility], where she resides. Patient has been seen by medicine this morning. Her urine culture has been finalized and medicine has consulted infectious disease. Physical Exam Hip Hemiarthroplasty: Status post surgical day number 3 Patient is examined lying in bed Patient is awake, alert, and oriented 3 Vital signs stable Good chest excursion with deep inspiration and expiration No signs or symptoms of DVT; no calf pain Lower extremity cuffs in place bilaterally Abductor pillow intact Dressing of the right hip is clean, dry, and intact; no erythema, purulence, or signs of infection No significant pain with palpation over the surgical site Full range of motion of ankles bilaterally Dorsiflexion, plantarflexion, and extensor hallucis longus positive sustained bilaterally Neurovascularly intact bilateral lower extremities Capillary refill less than 2 seconds bilateral lower extremities Assessment: Status post right hip hemiarthroplasty for right hip femoral neck fracture Right hip pain Status post fall Anxiety Bipolar depression History of chronic subdural hematoma Urinary tract infection Plan: 1. Patient may continue to weight-bear as tolerated on the right lower extremity; patient may work with physical therapy to increase mobility and ambulation 2. Continue pain control oral [place] and Tylenol as prescribed as needed 3. Abductor pillow to remain in place at all times except while working with therapy or while sitting in a bedside chair 4. Medicine to continue following the patient for their other medical diagnoses including urinary tract infection, anxiety, and bipolar depression; based on her urine culture, medicine has consulted infectious disease who has not yet seen the patient 5. Continue with with anticoagulation therapy with aspirin 325 mg twice a day 5. We'll continue to follow the patient; the patient has continued to improve. She does have a urinary tract infection. We are currently waiting for consultation by infectious disease. Once the patient is cleared for discharge by medicine and infectious disease and is prescribed the appropriate antibiotic medication for her urinary tract infection, we will plan to have her discharge back to [facility] where she resides hopefully tomorrow, 02/29/2020 6. Patient can follow-up with Maverick Dorsey PA-C or Dr. Perez Redding at [facility] in 2-3 weeks following discharge
--- NOTE | 2021-02-27 12:55 | P.PN ---
Subjective This is a pleasant 75 years old female with past medical history of anxiety, bipolar depression, chronic subdural hematoma. No documents of her PCP. Patient herself is poor historian. Patient was transferred from [facility]. She is a resident of [facility] [place] When I talked to the patient she is fully awake and oriented and answering my questions however she thinks she is in her school when I told her she is in the hospital she said "no, I am in a school", she thinks it is 1945. And she thinks the name of the president is "sabrina" . She knew she fell but she cannot tell if she passed out or not. She told me she was complaining of from hip pain earlier but not now. She denies chest pain, no abdominal pain. No difficulty breathing. No urinary or bowel complaints. She denies fever She admits taking Ativan at home but she cannot say if she has seizure or no. She is hemodynamically stable, she is saturating 92-94% on room air Labs showing leukocytosis of 12.7 K, rest of CBC, INR, basic metabolic panel and liver enzymes are unremarkable. Coronavirus not detected. Chest x-ray showing cardiomegaly, no pleural effusion. Pelvic and hip surgery showing right femoral neck fracture with mild displacement No EKG was seen in the paper or electronic chart so we ordered EKG: Normal sinus rhythm at [address] no [address]-T changes, she has some Q-wave in the inferior leads. Looks not new. And Q Tese is 434 On reviewing the records from [facility] showing Liver enzymes are mildly elevated with AST 92 with reference rate 13-39, ALT 71 with reference range is 7-52, total bilirubin is normal at 0.3. WBC is normal 7.1K, hemoglobin 12.4, platelets slightly low 124k. Valproic acid level is acceptable at 98 with reference range is 50-100 02/25/2021 Patient is a status post right hip arthroplasty. Today is postop day #1. She is in bed comfortable not in distress. Does not complain from hip area pain or suprapubic abdominal pain. However she still confused about place, time and p erson. It looks like she is close to her basal mentation, patient looks pleasant. Line hemodynamically stable. However she had a fever over 100.8 this morning. Leukocytosis came back to normal at 9.0K today. She remains on ceftriaxone 2 g IV. Urine culture still pending for possible UTI. Chest disease team for persistent fever orthopedic primary team on the case 02/26/2021 Patient today actually is more awake, this is the first time she told me she is in hospital and she knew its [facility]. She still is about the date thinking its 1945 and she could not tell the name of the president. No specific complaint. Patient is unaware about her diagnosis and she is really oriented regarding this both probably she will not remember due to her possible dementia Other than that Vitas looks stable, patient was afebrile today and most of yesterday except for the first 2-3 hours of the ureter morning. It looks like the patient is responding to ceftriaxone Urine culture is growing gram-negative bacilli and from the results are still pending. 02/27/2021 This is a pleasant 75 years old female presents with right hip fracture status post arthroplasty, today is postoperative day #3. She fell at home secondary to UTI, urine culture is growing ESBL E. coli, infectious disease on the case, possibly patient will need a PICC line tomorrow and IV antibiotics upon discharge as per ID team patient is confused as baseline due to her history of dementia, on the top of that she has metabolic encephalopathy secondary to UTI, she is pleasant awake and alert and answering questions. I told her her diagnoses yesterday but she could not remember today. mild leukocytosis could be secondary to UTI/hip fracture and surgery. Monitor CBC tomorrow. ECF upon discharge Objective - Vital Signs Vital signs: Vital Signs Temp 98.7 F 02/27/21 08:00 Pulse 99 02/27/21 08:00 Resp 16 02/27/21 08:00 BP 146/74 02/27/21 08:00 Pulse Ox 93 L 02/27/21 08:00 Intake & Output 02/26/21 02/27/21 02/27/21 18:59 06:59 18:59 Intake Total 12 Output Total 425 Balance 12 -425 Intake: Intake, IV Titration 12 Amount Sodium Chloride 0.9% 1, 12 000 ml @ 20 mls/hr IV . Q24H [facility] Rx#:[id number] Output: Urine 425 Other: Voiding Method External Catheter External Catheter External Catheter - Exam GENERAL: The patient is alert and oriented x3, not in any acute distress. Well developed, well nourished. HEENT: Pupils are round and equally reacting to light. EOMI. No scleral icterus. No conjunctival pallor. Normocephalic, atraumatic. No pharyngeal erythema. No thyromegaly. CARDIOVASCULAR: S1 and S2 present. No murmurs, rubs, or gallops. PULMONARY: Chest is clear to auscultation, no wheezing or crackles. ABDOMEN: Soft, nontender, nondistended, normoactive bowel sounds. No palpable organomegaly. MUSCULOSKELETAL: No joint swelling or deformity. -EXTREMITIES: No cyanosis, clubbing, or pedal edema. Right hip wound with dressing is in place. We will defer the rest of the examination to the surgical team NEUROLOGICAL: Gross neurological examination did not reveal any focal deficits. SKIN: No rashes. no petechiae. - Labs CBC & Chem 7: 02/26/21 18:02 02/25/21 08:07 Labs: Abnormal Lab Results - Last 24 Hours (Table) 02/26/21 Range/Units 18:02 WBC 14.9 H (3.8-10.6) k/uL MCHC 30.8 L (31.0-37.0) g/dL Neutrophils # 12.1 H (1.3-7.7) k/uL Microbiology - Last 24 Hours (Table) 02/24/21 10:50 Urine Culture - Final Urine,Catheterized Escherichia coli Assessment and Plan Assessment: right femoral neck fracture with mild displacement, status post right hip arthroplasty Acute UTI, secondary to ESBL E. col metabolic encephalopathy, improving Possible dementia Chronic subdural hematoma History of bipolar depression and anxiety, not an active issue Plan: She is a pleasant 75 years old female who presents with hip fracture.. Patient also with ESBL UTI. Infectious disease on the case for outpatient antibiotic decision patient is medically cleared was her antibiotics is setup for discharge and cleared by infectious disease team Labs and medication were reviewed.. Continue same treatment. Continue with symptomatic treatment. Resume home medication. Monitor lytes and vitals. DVT and GI prophylaxis. Further recommendations depends on the clinical course of the patient DVT prophylaxis and pain management as per primary surgery team GI prophylaxis: Pepcid possible discharge in 24-48 hours
[2021-02-27] MEDS ORDERED: PROMETHAZINE 25 MG TAB PO PRN (13:48)
[2021-02-27] MEDS: ERTAPENEM 1 GM in SODIUM CHLORIDE 0.9% 50 ML IVPB SCH (15:33)
[2021-02-27] MEDS: SODIUM CHLORIDE 0.9% 1,000 ML IV SCH (18:48)
--- NOTE | 2021-02-27 19:15 | PN ---
PROGRESS NOTE DATE OF SERVICE: 02/27/2021 REASON FOR FOLLOWUP: Urinary tract infection. INTERVAL HISTORY: Patient is currently afebrile. The patient is breathing comfortably on room air. Denies any chest pain or cough. No abdominal pain or diarrhea. PHYSICAL EXAMINATION: Blood pressure 146/94 with a pulse of 99, temperature 98.7. She is 93% on room air. General description is an elderly female lying in in no distress. Respiratory system: Unlabored breathing, clear to auscultation anteriorly. Heart S1, S2. Regular rate and rhythm. Abdomen soft, no tenderness. LABS: Hemoglobin 9.8, white count 14.9 as of yesterday, not repeated today. Urine has been finalized with ESBL. DIAGNOSTIC IMPRESSION AND PLAN: Patient with ESBL E coli UTI infection, slight worsening of the white count, Zosyn discontinue. Repeat urine culture, add Invanz 1 g daily and monitor clinical course closely. MMODL / IJN: [id number] /
[2021-02-27] MEDS: QUEtiapine 25 MG TAB PO SCH (20:42)
[2021-02-27] MEDS ORDERED: FAMOTIDINE 20 MG TAB PO SCH (21:00)
[2021-02-28 04:08] LABS: Amorphous Sediment,Urine Rare /hpf; Appearance,Urine Clear (Clear); Bilirubin,Urine Negative (Negative); Blood,Urine Trace (Negative); Color,Urine Yellow; Glucose,Urine (UA) Negative (Negative); Ketones,Urine Negative (Negative); Leukocyte Esterase,Urine Negative (Negative); Mucus,Urine Rare /hpf; Nitrite,Urine Negative (Negative); PH, Urine 6.5 (5.0-8.0); Protein,Urine Negative (Negative); RBC,Urine 4 /hpf (0-5); Specific Gravity,Urine 1.018 (1.001-1.035); Squamous Epithelial Cell,Urine <1 /hpf (0-4); WBC,Urine 2 /hpf (0-5)
[2021-02-28] MEDS: ASPIRIN 325 MG TAB PO SCH (07:57)
[2021-02-28] MEDS: ERTAPENEM 1 GM in SODIUM CHLORIDE 0.9% 50 ML IVPB SCH (07:57)
[2021-02-28 08:02] VITALS: BP 136/84; PULSE 78; RESP 18; TEMP 98.4
--- NOTE | 2021-02-28 10:48 | P.DS ---
Providers Date of admission: 02/23/21 19:04 Expected date of discharge: 02/28/21 Attending physician: Demetrice Redding Consults: 02/23/21 17:05 Consult Physician Urgent Consulting Provider: Anand Mcnair Consult Reason/Comments: medical care Do you want consulting provider notified?: Yes 02/25/21 12:03 Consult Physician Urgent Consulting Provider: Carlie Yeung Consult Reason/Comments: uti, ESBL E Coli Do you want consulting provider notified?: Yes Primary care physician: Stated None - Discharge Diagnosis(es) (1) Anxiety Current Visit: Yes Status: Acute (2) Fracture of right hip Current Visit: Yes Status: Acute (3) Fall Current Visit: No Status: Acute (4) Bipolar depression Current Visit: Yes Status: Acute (5) Urinary tract infection Current Visit: Yes Status: Acute (6) Acute right hip pain Current Visit: Yes Status: Acute Hospital Course: This is a pleasant 75-year-old female who presented with a right hip femoral neck fracture status post fall. She was admitted for further treatment evaluation. She underwent a right hip hemiarthroplasty performed on 02/24/2021. Since that time her right hip pain has been well-controlled. She is not currently taking any narcotic pain medication for pain control. The patient tolerated the procedure well and did well postoperatively. Condition on day of discharge is stable. Patient resides at [facility] and will be discharged back to [facility] today pending clearance by medicine and infectious disease. She has been treated for urinary tract infection in which the culture was positive for E. coli. Antibiotic medications will be prescribed by infectious disease at discharge. Patient was cleared preoperatively for surgery by medicine. Patient currently denies any nausea, vomiting, fever, or chills. Patient is eating and voiding freely without difficulty. Dressing over the right hip has been removed. Incision site is clean, dry, and intact with no active drainage and no sign of infection. Patient may continue to weight-bear as tolerated on the right lower extremity; patient may work with physical therapy to increase mobility and ambulation. Abductor pillow to remain in place while lying in bed. Patient given a prescription for aspirin 325 mg 1 tab twice a day for anticoagulation, dispensed #60. Patient should continue to take this medication until completion. Patient is also prescribed acetaminophen 650 mg 1 tablet every 8 hours as needed for pain, dispensed #21. Patient's other medical diagnoses include anxiety, bipolar depression, urinary tract infection, and chronic subdural hematoma. We will plan for medicine to complete her med rec and prescribe other medications as needed at the time of discharge. Patient will be cleared by medicine and infectious disease prior to her discharge back to [facility]. Physical Exam on day of discharge: Status post surgical day number 4 Patient is examined lying in bed Patient is awake, alert, and oriented 3 Vital signs stable Good chest excursion with deep inspiration and expiration No signs or symptoms of DVT; no calf pain Lower extremity cuffs in place bilaterally Abductor pillow intact Surgical site of the right hip is clean, dry, and intact; no erythema, purulence, or signs of infection No significant pain with palpation over the surgical site Full range of motion of ankles bilaterally Dorsiflexion, plantarflexion, and extensor hallucis longus positive sustained bilaterally Neurovascularly intact bilateral lower extremities Capillary refill less than 2 seconds bilateral lower extremities Procedures: Right hip hemiarthroplasty for right hip femoral neck fracture Patient Condition at Discharge: Stable Plan - Discharge Summary Discharge Rx Participant: No New Discharge Prescriptions: New Aspirin 325 mg PO BID #60 tab Acetaminophen [Tylenol 8 Hour] 650 mg PO Q8HR PRN #21 tablet.er PRN Reason: Pain No Action Levothyroxine Sodium [Synthroid] 88 mcg PO DAILY@0600 polyethylene glycoL 3350 [Miralax] 17 gm PO BID PRN PRN Reason: Constipation LORazepam [Ativan] 1 mg PO QID@06,,18, Acetaminophen [Tylenol 8 Hour] 650 mg PO Q4H PRN PRN Reason: Pain Mirtazapine [Remeron] 15 mg PO HS@2100 Loperamide HCl [Imodium A-D] 2 - 4 mg PO DIRECTED PRN MDD 8MG PRN Reason: AFTER EACH LOOSE STOOL Divalproex Sprinkle [Depakote Sprinkle] 250 mg PO TID@0900,1300,2100 Dextromethorphan HBr/Quinidine [Nuedexta 20-10 mg Capsule] 1 cap PO BID@0900,2100 Discharge Medication List Levothyroxine Sodium [Synthroid] 88 mcg PO DAILY@0600 04/26/18 [History] Acetaminophen [Tylenol 8 Hour] 650 mg PO Q4H PRN 02/23/21 [History] Dextromethorphan HBr/Quinidine [Nuedexta 20-10 mg Capsule] 1 cap PO BID@0900,2100 02/23/21 [History] Divalproex Sprinkle [Depakote Sprinkle] 250 mg PO TID@0900,1300,2100 02/23/21 [History] LORazepam [Ativan] 1 mg PO QID@06,12,18,20 02/23/21 [History] Loperamide HCl [Imodium A-D] 2 - 4 mg PO DIRECTED PRN MDD 8MG 02/23/21 [History] Mirtazapine [Remeron] 15 mg PO HS@209902/23/21 [History] polyethylene glycoL 3350 [Miralax] 17 gm PO BID PRN 02/23/21 [History] Acetaminophen [Tylenol 8 Hour] 650 mg PO Q8HR PRN #21 tablet.er 02/26/21 [Rx] Aspirin 325 mg PO BID #60 tab 02/26/21 [Rx] Follow up Appointment(s)/Referral(s): Roxy Gibson, [NON-STAFF] - As Needed Demetrice Redding DO [Doctor of Osteopathic Medicine] - 2 Weeks None,Stated [Primary Care Provider] - 1-2 days Activity/Diet/Wound Care/Special Instructions: Keep site clean. Patient may shower without dressing intact; do not soak and top Leave glue intact and allow it to fray off on its own. May ambulate as tolerated, with assistance and with weightbearing as tolerated on right lower extremity Abductor pillow to remain in place while lying in bed Right hip dislocation precautions Avoid heavy or rigorous activity. No repetitive bending twisting or lifting. . Discharge Disposition: TRANSFER TO SNF/ECF
[2021-02-28 10:49] LABS: Basophils % (A) 0.9 %; Eosinophils % (A) 3.8 %; HCT 34.5 % (37.2-46.3); Lymphocytes # (A) 1.89 X 10*3/uL (0.90-5.00); Lymphocytes % (A) 17.9 %; MCH 29.5 pg (27.0-32.0); MCHC 31.9 g/dL (32.0-37.0); MCV 92.5 fL (80.0-97.0); Mean Platelet Volume 9.1 fL (9.5-12.2); Monocytes # (A) 0.92 X 10*3/uL (0.20-1.00); Monocytes % (A) 8.7 %; Neutrophils # (A) 6.84 X 10*3/uL (1.80-7.70); Neutrophils % (A) 64.8 %; Platelet Count 440 X 10*3/uL (140-440); RBC 3.73 X 10*6/uL (4.10-5.20); RDW 14.6 % (11.5-14.5); WBC 10.56 X 10*3/uL (4.50-10.00)
--- NOTE | 2021-02-28 12:37 | PN ---
PROGRESS NOTE DATE OF SERVICE: 02/28/2021. FOLLOWUP: ESBL E coli urinary tract infection. INTERVAL HISTORY: Patient is currently afebrile. The patient is breathing comfortably. No chest pain. No cough. No vomiting. No abdominal pain. No diarrhea. PHYSICAL EXAMINATION: Her blood pressure 136/84, pulse of 70, temperature 98.4. She is 93% on room air. GENERAL DESCRIPTION: The patient is an elderly female lying in in no distress. RESPIRATORY system: Unlabored breathing. Clear to auscultation anteriorly. HEART S1, S2. Regular rate and rhythm. ABDOMEN: Soft, no tenderness. LAB: Did have a repeat urine which is clear. DIAGNOSTIC IMPRESSION AND PLAN: Patient with a positive urine culture with ESBL E coli. Possible mild cystitis versus colonization, as the patient repeat urine is negative. There will be no need for antibiotic on discharge. MMODL / IJN: [id number] /
== END 2021-02-28 13:51 | DRG 521 ==
LOC: EC 16:16 → 1SOBS 19:04 → 4SSUR 02-24 01:02
PROVIDERS: ADMIT Orthopaedic Surgery Orthopaedic Surgery of the Spine; ATTEND Orthopaedic Surgery Orthopaedic Surgery of the Spine
PROC: 0SRR0JZ Replacement of Right Hip Joint, Femoral Surface with Synthetic Substitute, Open Approach (ICD-10-PCS; principal; 2021-02-24 08:45)
DX: S72.001A Fracture of unspecified part of neck of right femur, initial encounter for closed fracture (principal); I62.03 Nontraumatic chronic subdural hemorrhage; G93.41 Metabolic encephalopathy; F31.30 Bipolar disorder, current episode depressed, mild or moderate severity, unspecified; N39.0 Urinary tract infection, site not specified; Z16.12 Extended spectrum beta lactamase (ESBL) resistance; F03.90 Unspecified dementia, unspecified severity, without behavioral disturbance, psychotic disturbance, mood disturbance, and anxiety; Z79.890 Hormone replacement therapy; V00.121A Fall from non-in-line roller-skates, initial encounter; F41.9 Anxiety disorder, unspecified; Z20.822 Contact with and (suspected) exposure to COVID-19; B96.20 Unspecified Escherichia coli [E. coli] as the cause of diseases classified elsewhere; Z88.0 Allergy status to penicillin
CPT/HCPCS: 36415; 71045; 73501; 73502; 80048; 80053; 81001; 83735; 85025; 85610; 86850; 86900; 86901; 87077; 87086; 87186; 87635; 88305; 88311; 93005; 99285